=== PATIENT | male | born 1955 | race Caucasian/White ===

== ENCOUNTER → 2017-08-21 | Outpatient (CLI) | payer BC ==
--- NOTE | 2017-08-21 13:03 | US ---
EXAMINATION TYPE: US venous doppler duplex LE DATE OF EXAM: 08/21/2017 12:45 PM COMPARISON: NONE CLINICAL HISTORY: Swelling Bilateral Legs R22.42, R22.41. Bilateral swelling. Colon and liver Ca. P atient states that after chemo swelling began. No hx of blood clots or on blood thinners. SIDE PERFORMED: Bilateral TECHNIQUE: The lower extremity deep venous system is examined utilizing real time linear array sonog abbie with graded compression, doppler sonography and color-flow sonography. VESSELS IMAGED: External Iliac Vein (EIV) Common Femoral Vein Deep Femoral Vein Greater Saphenous Vein * Femoral Vein Popliteal Vein Small Saphenous Vein * Proximal Calf Veins (* superficial vessels) Grayscale, color doppler, spectral doppler imaging performed of the deep veins of the lower extremiti es. There is normal flow, compressibility, vascular waveforms. Right Leg: Negative for DVT Left Leg: Negative for DVT [facility]\[id number], Chelly Pinto - 08/21/2017 12:55:48 PM Called office at end of exam and spoke to Nissa from the call center due to office being closed for lunch regarding preliminary results. JT. IMPRESSION: No sonographic evidence of deep venous thrombosis within either lower extremity.
== END ==
LOC: RADUSWWP 12:06
PROVIDERS: ATTEND Internal Medicine Hematology & Oncology
DX: R22.42 Localized swelling, mass and lump, left lower limb (principal); R22.41 Localized swelling, mass and lump, right lower limb
CPT/HCPCS: 93970

== ENCOUNTER → 2017-08-28 | Outpatient (CLI) | payer BC ==
[2017-08-28 11:21] LABS: Blood Urea Nitrogen 8 mg/dL (9-20)
--- NOTE | 2017-08-28 13:28 | CT ---
EXAMINATION TYPE: CT ChestAbdPelvis w con DATE OF EXAM: 08/28/2017 COMPARISON: 06/03/2017 MRI abdomen and 06/01/2017 CT abdomen pelvis. HISTORY: Colon CA CT DLP: 1547 mGycm. Automated Exposure Control for Dose Reduction was Utilized. CONTRAST: CT scan of the thorax, abdomen and pelvis is performed with IV Contrast, patient injected with 100 mL of Omnipaque 300. FINDINGS: LUNGS: There is chronic right hemidiaphragm elevation. A new small right pleural effusion and associa laila right basilar atelectasis is seen. The lungs are grossly clear, there is no concerning parenchyma l mass or nodule identified. There is no pleural effusion or pneumothorax seen. The tracheobronchi al tree is patent. MEDIASTINUM: There are no greater than 1 cm hilar or mediastinal lymph nodes. No pericardial effusi on is seen. OTHER: There is a right-sided Mediport terminating in the cavoatrial junction. LIVER/GB: Although direct comparison with the prior CT and MRI are slightly different due to lack of intravenous contrast on the prior CT and technique and MRI there appears to be interval growth of the metastatic lesions with the largest in the left hepatic lobe now measuring 10.1 cm and previously me asuring 8.9 cm on the exam of 06/03/2017 and the largest near the right hepatic dome measuring 9.5 x 6.4 cm and previously measuring 8.6 cm. Largest lesion within the inferior right hepatic lobe as desc ribed on the prior MRI measures 8.5 x 7.1 cm and previously measured 5.0 cm. Innumerable metastases a re seen to the hepatic artery, within both lobes that are peripherally enhancing and centrally necrot ic. It is difficult to determine if any of these are new given lack of intravenous contrast on the pr ior CT. Portal vein again appears patent. PANCREAS: No significant abnormality is seen. No ductal dilatation. SPLEEN: No significant abnormality is seen. No splenomegaly. ADRENALS: No significant abnormality is seen. No nodules or thickening. KIDNEYS: Kidneys enhance symmetrically. Tiny probable cortical renal cyst is seen on the left on seri es 3 image 69 although overall this is too small to accurately characterize. BOWEL: Focal bowel wall thickening is seen of the ascending colon, presumably the known carcinoma wit h surrounding adenopathy as described below. Bowel is nondilated. Numerous sigmoid diverticula are no laila without pericolonic fat stranding. Minimal bowel wall thickening of the sigmoid colon may relate to congestive colopathy. LYMPH NODES: Right lower quadrant adenopathy is again appreciated with possible mesenteric implants w ith the largest conglomeration of nodes/soft tissue density measuring similar to the prior exam of 2. 8 x 1.8 cm (previously 2.8 cm). This is adjacent to area of focal bowel wall thickening of the ascend ing colon, presumably the known carcinoma. OSSEOUS STRUCTURES: No significant abnormality is seen. OTHER: New perihepatic ascites tracks down the lateral conal fascia into the pelvis and is overall sm all volume. Small amount of fluid is also seen adjacent to the spleen. IMPRESSION: 1. Overall findings represent progression of disease with enlargement of the innumerable hepatic meta stases. 2. Redemonstration of an ascending colonic mass, presumably the site of the patient's known carcinoma , with stable surrounding adenopathy most compatible with malignant metastatic adenopathy. 3. New small volume perihepatic and perisplenic ascites extending into the low pelvis. 4. No new evidence of metastatic disease within the chest or osseous structures.
== END ==
LOC: RADPROMAIN 10:38
PROVIDERS: ATTEND Internal Medicine Hematology & Oncology
DX: C18.2 Malignant neoplasm of ascending colon (principal); C78.7 Secondary malignant neoplasm of liver and intrahepatic bile duct; R18.8 Other ascites
CPT/HCPCS: 82565; 84520; 71260; 74177; J1642

== ENCOUNTER 2017-09-10 10:03 | Inpatient (IN) | payer BC ==
[2017-09-10] MEDS ORDERED: SODIUM CHLORIDE 0.9% 1,000 ML IV STA ×2 (10:55)
[2017-09-10] MEDS ORDERED: RX INFO: IV CONTRAST WAS GIVEN 1 EACH MISC MISCELLANE PRN (10:56)
[2017-09-10 11:53] LABS: Anisocytosis Slight; Basophils % (A) 1 %; Eosinophils % (A) 1 %; HCT 26.8 % (39.0-53.0); HGB 8.7 gm/dL (13.0-17.5); INR 1.6 (<1.2); Lymphocytes # (A) 0.5 k/uL (1.0-4.8); Lymphocytes % (A) 37 %; MCH 29.7 pg (25.0-35.0); MCHC 32.5 g/dL (31.0-37.0); MCV 91.2 fL (80.0-100.0); Mean Platelet Volume 10.6; Monocytes % (A) 2 %; Neutrophils # (A) 0.8 k/uL (1.3-7.7); Neutrophils % (A) 56 %; Partial Thromboplastin Time 32.5 sec (22.0-30.0); RBC 2.93 m/uL (4.30-5.90); RDW 19.9 % (11.5-15.5)
[2017-09-10 12:00] LABS: ALT 58 U/L (21-72); AST 148 U/L (17-59); Albumin 2.3 g/dL (3.5-5.0); Alkaline Phosphatase 717 U/L (38-126); Anion Gap 14 mmol/L; Blood Urea Nitrogen 17 mg/dL (9-20); Calcium 8.1 mg/dL (8.4-10.2); Carbon Dioxide 24 mmol/L (22-30); Chloride 103 mmol/L (98-107); Glucose 117 mg/dL (74-99); Potassium 3.8 mmol/L (3.5-5.1); Sodium 141 mmol/L (137-145); Total Bilirubin 8.4 mg/dL (0.2-1.3); Total Protein 4.9 g/dL (6.3-8.2)
[2017-09-10 12:08] LABS: Creatine Kinase 28 U/L (55-170); WBC 1.4 k/uL (3.8-10.6)
[2017-09-10 12:21] LABS: Creatine Kinase MB 0.6 ng/mL (0.0-2.4); Troponin I <0.012 ng/mL (0.000-0.034)
[2017-09-10 12:28] LABS: Platelet Count 44 k/uL (150-450)
--- NOTE | 2017-09-10 13:37 | CT ---
EXAMINATION TYPE: CT abdomen pelvis w con DATE OF EXAM: 09/10/2017 COMPARISON: CT chest abdomen and pelvis from 13 days ago. HISTORY: abdominal distention. Liver/colon CA CT DLP: 1373 mGycm, Automated Exposure Control for Dose Reduction was Utilized. CONTRAST: CT scan of the abdomen and pelvis is performed with oral and with IV Contrast, patient injected with 100 mL of Isovue 300. FINDINGS: LUNG BASES: There is persistent small right pleural effusion and associated right basilar compressive atelectasis. LIVER/GB: There is redemonstration of hepatomegaly within numerable hepatic metastatic lesions. For r eference lateral segment left hepatic lobe lesion measures 9.7 cm on long axis axial image 21 and jennifer sured 10.0 cm long axis prior study image 46. For reference posterior segment right hepatic lobe live r lesion measures 8.4 cm long axis current study axial image 51 versus 8.5 cm prior study image 71. S mall amount of perihepatic ascites anteriorly, inferiorly, and laterally remains present. There is ri m calcified 2.2 cm gallstone in gallbladder which is medially displaced due to hepatomegaly unchanged in appearance from prior study. PANCREAS: No significant abnormality is seen. SPLEEN: There is lateral perisplenic ascites redemonstrated not significantly changed. ADRENALS: No significant abnormality is seen. KIDNEYS: No significant abnormality is seen. BOWEL: Sigmoid colonic diverticulosis is redemonstrated. There is persistent suspicious wall thickeni ng in the right colon near axial image 68 right lower quadrant displaced by enlarged liver could refl ect site of primary neoplasm. PROSTATE/SEMINAL VESICLES: No gross abnormality seen. LYMPH NODES: Adjacent to presumed right colonic mass there is confluent mesenteric implants or adenop athy again seen measuring 2.8 x 2.3 cm axial image 68. OSSEOUS STRUCTURES: There is mild to moderate multilevel spurring of the spine redemonstrated. OTHER: There is mild to moderate diffuse soft tissue anasarca again seen. There is persistent moderat e amount of pelvic ascites. There is more mild abdominal ascites most prominent in the right lower qu adrant. There is no significant change in amount of ascites from most recent prior CT IMPRESSION: No significant change from most recent CT. Hepatomegaly with diffuse hepatic metastatic disease causing local mass effect. There is primary colonic carcinoma and adjacent medial adenopathy in the right lower quadrant redemonstrated. There is small amount of abdominal and moderate amount of pelvic ascites seen without significant interval change. There is stable small right pleural effusio n.
--- NOTE | 2017-09-10 14:14 | XR ---
EXAMINATION TYPE: XR chest 2V DATE OF EXAM: 09/10/2017 COMPARISON: NONE HISTORY: Weakness, liver and colon cancer TECHNIQUE: Frontal and lateral views of the chest are obtained. FINDINGS: Increased attenuation is present at the right lung base, and right heart border is obscure d. For catheter is present overlying right pectoral region, distal tip over the superior vena cava. T here are overlying cardiac leads. Heart size is likely normal. No evident pneumothorax. IMPRESSION: Right pleural effusion and associated atelectasis.
[2017-09-10 14:40] LABS: Appearance,Urine Cloudy (Clear); Bilirubin,Urine 2+ (Negative); Blood,Urine Negative (Negative); Color,Urine Dark Brown; Glucose,Urine (UA) Negative (Negative); Ketones,Urine Negative (Negative); Leukocyte Esterase,Urine Negative (Negative); Mucus,Urine Occasional /hpf; Nitrite,Urine Negative (Negative); PH, Urine 5.5 (5.0-8.0); Protein,Urine 1+ (Negative); RBC,Urine 1 /hpf (0-5); Specific Gravity,Urine 1.035 (1.001-1.035); WBC,Urine 7 /hpf (0-5)
[2017-09-10] MEDS ORDERED: MORPHINE ORAL SOLN 10 MG/5 ML CUP PO PRN (15:19)
[2017-09-10] MEDS ORDERED: NALOXONE 0.4 MG/ML 1 ML VIAL IV PRN (15:19)
--- NOTE | 2017-09-10 15:19 | ED ---
Weakness HPI - General Chief complaint: Weakness Stated complaint: PT INR Prolonged sent from Dr. Martin Time Seen by Provider: 09/10/17 10:44 Source: patient, family Mode of arrival: wheelchair Limitations: no limitations - History of Present Illness Initial comments: 61 years old male comes in with the some weakness distally he was by his primary care to come to the ER he noticed that her total bilirubin was elevated him a he himself feels like, there is a jaundiced but she denies any headaches no chest pain or shortness of breath no abdominal pain he does have a pain over the right upper quadrant area is aware that he has a liver metastatic disease from his colon cancer no pleuritic chest pain no symptoms of TIA or CVA - Related Data Home Medications Medication Instructions Recorded Confirmed HYDROcodone/APAP 5-325MG [[place] 1 tab PO Q8H PRN 09/10/17 09/10/17 5-325] Nystatin 100,000 Unit/ml Susp 5 ml PO QID PRN 09/10/17 09/10/17 [Mycostatin Oral Susp] Prochlorperazine [Compazine] 10 mg PO Q6H PRN 09/10/17 09/10/17 Allergies Allergy/AdvReac Type Severity Reaction Status Date / Time No Known Allergies Allergy Verified 09/10/17 10:58 Review of Systems ROS Statement: Those systems with pertinent positive or pertinent negative responses have been documented in the HPI. ROS Other: All systems not noted in ROS Statement are negative. Past Medical History Past Medical History: No Reported History Additional Past Medical History / Comment(s): colon/liver cancer History of Any Multi-Drug Resistant Organisms: None Reported Past Surgical History: No Surgical Hx Reported Past Psychological History: No Psychological Hx Reported Smoking Status: Never smoker Past Alcohol Use History: None Reported Past Drug Use History: None Reported - Past Family History Mother Family Medical History: Cancer Additional Family Medical History / Comment(s): bowel cancer Brother(s) Family Medical History: Cancer General Exam - General Exam Comments Initial Comments: General: The patient is awake him a he has obvious jaundice GCS is 15 Skin: Skin is warm and dry and no rashes or lesions are noted. Eye: Pupils are equal, round and reactive to light, extra-ocular movements are intact; there is normal conjunctiva bilaterally. Disposition noticed here as well Ears, nose, mouth and throat: There are moist mucous membranes and no oral lesions. Neck: The neck is supple, there is no tenderness or JVD. Cardiovascular: There is a regular rate and rhythm. No murmur, rub or gallop is appreciated. Respiratory: To auscultation bilateral, no wheezing no rhonchi no distress respiratory mondragon noticed Gastrointestinal: Soft, non-distended, non-tender abdomen without masses or organomegaly noted. There is no rebound or guarding present. Bowel sounds are unremarkable. Tenderness noticed over the right upper quadrant with the deep palpation, positive bowel sounds no guarding no rebound no symptoms of or signs of peritonitis Back: There is no tenderness to palpation in the midline. There is no obvious deformity. Musculoskeletal: Normal ROM, no tenderness, There is no pedal edema. There is no calf tenderness or swelling. No cords were appreciated. Neurological: CN II-XII intact, Cranial nerves III through XII are intact. There are no obvious motor or sensory deficits. Coordination appears grossly intact. Speech is normal. Psychiatric: Cooperative, appropriate mood & affect, normal judgment. Limitations: no limitations Course Vital Signs 09/10/17 09/10/17 09/10/17 10:31 12:30 13:56 Temperature 97.2 F L Pulse Rate 108 H 94 92 Respiratory 20 16 16 Rate Blood Pressure 149/88 124/74 111/70 O2 Sat by Pulse 98 100 100 Oximetry 09/10/17 14:45 Temperature Pulse Rate 98 Respiratory 16 Rate Blood Pressure 130/70 O2 Sat by Pulse 100 Oximetry Assessment noticed some white count is 1.4 platelets of 44 INR is 1.6 lactate is 2.1 troponin is unremarkable total bili is greater than 8 CT abdomen was done was reviewed findings discussed with the patient noticed previously documented hepatic lesions with some mass effect, Dr. Recinos was contacted Dr. Recinos he agreed with the admission he agreed to be a consult and Dr. Caba be consulted as well patient be admitted under Dr. Arsh jacobo hospitalist group my he agrees with the admission as long as well as patient and family EKG Findings - EKG Comments: EKG Findings:: EKG is normal sinus rhythm ventricular rate is 100 ME interval is 1:30 QRS duration is 78 QT/QTC 3 11/18/1954/456 review of this system does not reveal any ST elevation noticed some T-wave inversion in V3 Medical Decision Making - Lab Data Result diagrams: 09/10/17 11:15 09/10/17 11:15 Lab Results 09/10/17 09/10/17 09/10/17 Range/Units 11:15 11:15 11:15 WBC 1.4 L* (3.8-10.6) k/uL RBC 2.93 L (4.30-5.90) m/uL Hgb 8.7 L (13.0-17.5) gm/dL Hct 26.8 L (39.0-53.0) % MCV 91.2 (80.0-100.0) fL MCH 29.7 (25.0-35.0) pg MCHC 32.5 (31.0-37.0) g/dL RDW 19.9 H (11.5-15.5) % Plt Count 44 L* (150-450) k/uL Neutrophils % 56 % Lymphocytes % 37 % Monocytes % 2 % Eosinophils % 1 % Basophils % 1 % Neutrophils # 0.8 L (1.3-7.7) k/uL Lymphocytes # 0.5 L (1.0-4.8) k/uL Monocytes # 0.0 (0-1.0) k/uL Eosinophils # 0.0 (0-0.7) k/uL Basophils # 0.0 (0-0.2) k/uL Manual Slide Review Performed Anisocytosis Slight PT (9.0-12.0) sec INR (<1.2) APTT (22.0-30.0) sec Sodium 141 (137-145) mmol/L Potassium 3.8 (3.5-5.1) mmol/L Chloride 103 (98-107) mmol/L Carbon Dioxide 24 (22-30) mmol/L Anion Gap 14 mmol/L BUN 17 (9-20) mg/dL Creatinine 0.40 L (0.66-1.25) mg/dL Est GFR (CKD-EPI)AfAm >90 (>60 ml/min/1.73 sqM) Est GFR (CKD-EPI)NonAf >90 (>60 ml/min/1.73 sqM) Glucose 117 H (74-99) mg/dL Lactic Ac Sepsis Rflx Plasma Lactic Acid Valentino (0.7-2.0) mmol/L Calcium 8.1 L (8.4-10.2) mg/dL Total Bilirubin 8.4 H (0.2-1.3) mg/dL AST 148 H (17-59) U/L ALT 58 (21-72) U/L Alkaline Phosphatase 717 H (38-126) U/L Total Creatine Kinase 28 L (55-170) U/L CK-MB (CK-2) 0.6 (0.0-2.4) ng/mL CK-MB (CK-2) Rel Index 2.1 Troponin I <0.012 (0.000-0.034) ng/mL Total Protein 4.9 L (6.3-8.2) g/dL Albumin 2.3 L (3.5-5.0) g/dL Urine Color Urine Appearance (Clear) Urine pH (5.0-8.0) Ur Specific [place] (1.001-1.035) Urine Protein (Negative) Urine Glucose (UA) (Negative) Urine Ketones (Negative) Urine Blood (Negative) Urine Nitrite (Negative) Urine Bilirubin (Negative) Urine Urobilinogen (<2.0) mg/dL Ur Leukocyte Esterase (Negative) Urine RBC (0-5) /hpf Urine WBC (0-5) /hpf Urine Mucus (None) /hpf 09/10/17 09/10/17 09/10/17 Range/Units 11:15 11:15 12:12 WBC (3.8-10.6) k/uL RBC (4.30-5.90) m/uL Hgb (13.0-17.5) gm/dL Hct (39.0-53.0) % MCV (80.0-100.0) fL MCH (25.0-35.0) pg MCHC (31.0-37.0) g/dL RDW (11.5-15.5) % Plt Count (150-450) k/uL Neutrophils % % Lymphocytes % % Monocytes % % Eosinophils % % Basophils % % Neutrophils # (1.3-7.7) k/uL Lymphocytes # (1.0-4.8) k/uL Monocytes # (0-1.0) k/uL Eosinophils # (0-0.7) k/uL Basophils # (0-0.2) k/uL Manual Slide Review Anisocytosis PT 15.0 H (9.0-12.0) sec INR 1.6 H (<1.2) APTT 32.5 H (22.0-30.0) sec Sodium (137-145) mmol/L Potassium (3.5-5.1) mmol/L Chloride (98-107) mmol/L Carbon Dioxide (22-30) mmol/L Anion Gap mmol/L BUN (9-20) mg/dL Creatinine (0.66-1.25) mg/dL Est GFR (CKD-EPI)AfAm (>60 ml/min/1.73 sqM) Est GFR (CKD-EPI)NonAf (>60 ml/min/1.73 sqM) Glucose (74-99) mg/dL Lactic Ac Sepsis Rflx Y Plasma Lactic Acid Valentino 2.1 H* (0.7-2.0) mmol/L Calcium (8.4-10.2) mg/dL Total Bilirubin (0.2-1.3) mg/dL AST (17-59) U/L ALT (21-72) U/L Alkaline Phosphatase (38-126) U/L Total Creatine Kinase (55-170) U/L CK-MB (CK-2) (0.0-2.4) ng/mL CK-MB (CK-2) Rel Index Troponin I (0.000-0.034) ng/mL Total Protein (6.3-8.2) g/dL Albumin (3.5-5.0) g/dL Urine Color Urine Appearance (Clear) Urine pH (5.0-8.0) Ur Specific [place] (1.001-1.035) Urine Protein (Negative) Urine Glucose (UA) (Negative) Urine Ketones (Negative) Urine Blood (Negative) Urine Nitrite (Negative) Urine Bilirubin (Negative) Urine Urobilinogen (<2.0) mg/dL Ur Leukocyte Esterase (Negative) Urine RBC (0-5) /hpf Urine WBC (0-5) /hpf Urine Mucus (None) /hpf 09/10/17 Range/Units 14:15 WBC (3.8-10.6) k/uL RBC (4.30-5.90) m/uL Hgb (13.0-17.5) gm/dL Hct (39.0-53.0) % MCV (80.0-100.0) fL MCH (25.0-35.0) pg MCHC (31.0-37.0) g/dL RDW (11.5-15.5) % Plt Count (150-450) k/uL Neutrophils % % Lymphocytes % % Monocytes % % Eosinophils % % Basophils % % Neutrophils # (1.3-7.7) k/uL Lymphocytes # (1.0-4.8) k/uL Monocytes # (0-1.0) k/uL Eosinophils # (0-0.7) k/uL Basophils # (0-0.2) k/uL Manual Slide Review Anisocytosis PT (9.0-12.0) sec INR (<1.2) APTT (22.0-30.0) sec Sodium (137-145) mmol/L Potassium (3.5-5.1) mmol/L Chloride (98-107) mmol/L Carbon Dioxide (22-30) mmol/L Anion Gap mmol/L BUN (9-20) mg/dL Creatinine (0.66-1.25) mg/dL Est GFR (CKD-EPI)AfAm (>60 ml/min/1.73 sqM) Est GFR (CKD-EPI)NonAf (>60 ml/min/1.73 sqM) Glucose (74-99) mg/dL Lactic Ac Sepsis Rflx Plasma Lactic Acid Valent[place] (0.7-2.0) mmol/L Calcium (8.4-10.2) mg/dL Total Bilirubin (0.2-1.3) mg/dL AST (17-59) U/L ALT (21-72) U/L Alkaline Phosphatase (38-126) U/L Total Creatine Kinase (55-170) U/L CK-MB (CK-2) (0.0-2.4) ng/mL CK-MB (CK-2) Rel Index Troponin I (0.000-0.034) ng/mL Total Protein (6.3-8.2) g/dL Albumin (3.5-5.0) g/dL Urine Color Dark Brown Urine Appearance Cloudy (Clear) Urine pH 5.5 (5.0-8.0) Ur Specific [place] 1.035 (1.001-1.035) Urine Protein 1+ H (Negative) Urine Glucose (UA) Negative (Negative) Urine Ketones Negative (Negative) Urine Blood Negative (Negative) Urine Nitrite Negative (Negative) Urine Bilirubin 2+ H (Negative) Urine Urobilinogen 8.0 (<2.0) mg/dL Ur Leukocyte Esterase Negative (Negative) Urine RBC 1 (0-5) /hpf Urine WBC 7 H (0-5) /hpf Urine Mucus Occasional H (None) /hpf Disposition Clinical Impression: Jaundice, Metastatic colon cancer to liver Disposition: ADMITTED IP TO THIS HOSP Condition: Good Referrals: Toña Chinchilla MD [Primary Care Provider] - 1-2 days
[2017-09-10] MEDS ORDERED: NYSTATIN 100,000 UNIT/ML SUSP 500,000 UNIT/5 ML CUP PO PRN (15:24)
[2017-09-10] MEDS ORDERED: PROCHLORPERAZINE 10 MG TAB PO PRN (15:24)
--- NOTE | 2017-09-10 16:50 | P.HPIM ---
History of Present Illness H&P Date: 09/10/17 Chief Complaint: Weakness and fatigue The patient is a 62-year-old male the past medical history of colon cancer with metastasis to liver follows with Dr. Kentrell yadav who is approximately a week following his latest chemotherapy, today he presents to the ER with his complaining of increasing lower extremity weakness and fatigue. The patient reports poor appetite over the last 1-2 weeks but reports that it's been significantly worse in the last 3 days. The patient has noticed today in particular that his skin whites of his eyes are increasingly yellow. The patient denies any increasing abdominal distention or shortness of breath, he does report some intermittent lower extremity swelling. The patient denies any itchiness, confusion, involuntary movements or tremors. In the ER the patient had a CT abdomen and pelvis that showed no significant change from previous, there was noted hepatomegaly with diffuse hepatic metastasis disease causing local mass effect is a primary colonic carcinoma and adjacent medial adenopathy in the right lower quadrant small amount of abdominal and a moderate amount of pelvic ascites seen. The patient was noted to be pancytopenic, hemoglobin of 8.7, platelets of 44,000, neutropenic and hyperbilirubinemia with a total bilirubin of 8.4. He was started on IV fluids in the ER and recommended for admission Past Medical History Past Medical History: No Reported History Additional Past Medical History / Comment(s): colon/liver cancer History of Any Multi-Drug Resistant Organisms: None Reported Past Surgical History: No Surgical Hx Reported Past Psychological History: No Psychological Hx Reported Smoking Status: Never smoker Past Alcohol Use History: None Reported Past Drug Use History: None Reported - Past Family History Mother Family Medical History: Cancer Additional Family Medical History / Comment(s): bowel cancer Brother(s) Family Medical History: Cancer Medications and Allergies Home Medications Medication Instructions Recorded Confirmed Type HYDROcodone/APAP 5-325MG [[place] 1 tab PO Q8H PRN 09/10/17 09/10/17 History 5-325] Nystatin 100,000 Unit/ml Susp 5 ml PO QID PRN 09/10/17 09/10/17 History [Mycostatin Oral Susp] Prochlorperazine [Compazine] 10 mg PO Q6H PRN 09/10/17 09/10/17 History Allergies Allergy/AdvReac Type Severity Reaction Status Date / Time No Known Allergies Allergy Verified 09/10/17 10:58 Physical Exam Vitals: Vital Signs Temp Pulse Resp BP Pulse Ox 09/10/17 15:54 97.9 F 98 18 129/76 100 09/10/17 14:45 98 16 130/70 100 09/10/17 13:56 92 16 111/70 100 09/10/17 12:30 94 16 124/74 100 09/10/17 10:31 97.2 F L 108 H 20 149/88 98 Intake and Output 09/10/17 09/10/17 09/10/17 06:59 14:59 22:59 Other: Weight 63.957 kg Constitutional: No acute distress, conversant, pleasant Eyes: Scleral icterus, moist conjunctiva, no lid-lag, PERRLA ENMT: NC/AT,Oropharynx clear, no erythema, exudates Neck:Supple, FROM, no masses, or JVD, No carotid bruits; No thyromegaly Lungs: Clear to auscultation, Clear to percussion, Normal respiratory effort, no accessory muscle use Cardiovascular: Heart regular in rate and rhythm, No murmurs, gallops, or rubs , +2 pedal pitting edema extending up the leg Abdominal: Soft Nontender, nom distended, no guarding, no rebound or rigidity, Normoactive bowel sounds No hepatomegaly, No splenomegaly, No palpable mass No abdominal wall hernia noted Skin: Noticeable jaundiced, with a dry flaky cracky skin. Extremities:No digital cyanosis No clubbing, Pedal pulses intact and symmetrical Radial pulses intact and symmetrical Normal gait and station, No calf tenderness Psychiatric: Alert and oriented to person, place and time, Appropriate affect Intact judgement Neuro: Muscles Strength 5/5 in all 4 extremities, Sensation to light touch grossly present throughout, Cranial nerves II-XII grossly intact. No focal sensory deficits Results CBC & Chem 7: 09/10/17 11:15 09/10/17 11:15 Labs: Abnormal Lab Results - Last 24 Hours (Table) 09/10/17 09/10/17 09/10/17 Range/Units 11:15 11:15 11:15 WBC 1.4 L* (3.8-10.6) k/uL RBC 2.93 L (4.30-5.90) m/uL Hgb 8.7 L (13.0-17.5) gm/dL Hct 26.8 L (39.0-53.0) % RDW 19.9 H (11.5-15.5) % Plt Count 44 L* (150-450) k/uL Neutrophils # 0.8 L (1.3-7.7) k/uL Lymphocytes # 0.5 L (1.0-4.8) k/uL PT (9.0-12.0) sec INR (<1.2) APTT (22.0-30.0) sec Creatinine 0.40 L (0.66-1.25) mg/dL Glucose 117 H (74-99) mg/dL Plasma Lactic Acid Valentino (0.7-2.0) mmol/L Calcium 8.1 L (8.4-10.2) mg/dL Total Bilirubin 8.4 H (0.2-1.3) mg/dL AST 148 H (17-59) U/L Alkaline Phosphatase 717 H (38-126) U/L Total Creatine Kinase 28 L (55-170) U/L Total Protein 4.9 L (6.3-8.2) g/dL Albumin 2.3 L (3.5-5.0) g/dL Urine Protein (Negative) Urine Bilirubin (Negative) Urine WBC (0-5) /hpf Urine Mucus (None) /hpf 09/10/17 09/10/17 09/10/17 Range/Units 11:15 11:15 14:15 WBC (3.8-10.6) k/uL RBC (4.30-5.90) m/uL Hgb (13.0-17.5) gm/dL Hct (39.0-53.0) % RDW (11.5-15.5) % Plt Count (150-450) k/uL Neutrophils # (1.3-7.7) k/uL Lymphocytes # (1.0-4.8) k/uL PT 15.0 H (9.0-12.0) sec INR 1.6 H (<1.2) APTT 32.5 H (22.0-30.0) sec Creatinine (0.66-1.25) mg/dL Glucose (74-99) mg/dL Plasma Lactic Acid Valentino 2.1 H* (0.7-2.0) mmol/L Calcium (8.4-10.2) mg/dL Total Bilirubin (0.2-1.3) mg/dL AST (17-59) U/L Alkaline Phosphatase (38-126) U/L Total Creatine Kinase (55-170) U/L Total Protein (6.3-8.2) g/dL Albumin (3.5-5.0) g/dL Urine Protein 1+ H (Negative) Urine Bilirubin 2+ H (Negative) Urine WBC 7 H (0-5) /hpf Urine Mucus Occasional H (None) /hpf Assessment and Plan (1) Pancytopenia Current Visit: Yes Status: Acute Code(s): D61.818 - OTHER PANCYTOPENIA SNOMED Code(s): 198292165 (2) Hyperbilirubinemia Current Visit: Yes Status: Acute Code(s): E80.6 - OTHER DISORDERS OF BILIRUBIN METABOLISM SNOMED Code(s): 48281507 (3) Failure to thrive in adult Current Visit: Yes Status: Acute Code(s): R62.7 - ADULT FAILURE TO THRIVE SNOMED Code(s): 014633442 (4) Metastatic colon cancer to liver Current Visit: Yes Status: Acute Code(s): C18.9 - MALIGNANT NEOPLASM OF COLON, UNSPECIFIED; C78.7 - SECONDARY MALIG NEOPLASM OF LIVER AND INTRAHEPATIC BILE DUCT SNOMED Code(s): 65803351 Plan: The patient is admitted with pancytopenia and severe dehydration with hyperbilirubinemia and adult failure to thrive Anticipate a greater than 2 midnight stay. We'll start hydrating the patient with gentle IV fluids, treat supportively with antiemetics if needed. We'll consult dietary for further recommendations. We'll consult the patient's oncologist Dr. Pfeiffer, place the patient on neutropenic precautions on oncology floor. The patient is afebrile at this time, is pancytopenic and neutropenic with elevated serum lactate acid possibly secondary to dehydration, we'll monitor closely for sepsis. We'll consult GI doctor Rebecca for further recommendations. We'll continue to follow this patient's clinical course
[2017-09-10] MEDS: HYDROcodone/APAP 5-325MG 1 EACH TAB PO PRN (21:41)
[2017-09-11] MEDS: PANTOPRAZOLE 40 MG/10 ML VIAL IV SCH (07:58)
[2017-09-11 10:25] LABS: Anisocytosis Moderate; HCT 25.5 % (39.0-53.0); HGB 7.9 gm/dL (13.0-17.5); Hypochromasia Slight; MCH 29.2 pg (25.0-35.0); MCHC 31.2 g/dL (31.0-37.0); MCV 93.8 fL (80.0-100.0); Macrocytosis Slight; Mean Platelet Volume 9.2; RBC 2.72 m/uL (4.30-5.90)
[2017-09-11 10:29] LABS: WBC 0.6 k/uL (3.8-10.6)
[2017-09-11 10:31] LABS: ALT 60 U/L (21-72); AST 142 U/L (17-59); Albumin 2.3 g/dL (3.5-5.0); Alkaline Phosphatase 727 U/L (38-126); Anion Gap 11 mmol/L; Blood Urea Nitrogen 12 mg/dL (9-20); Calcium 7.9 mg/dL (8.4-10.2); Carbon Dioxide 24 mmol/L (22-30); Chloride 105 mmol/L (98-107); Glucose 92 mg/dL (74-99); Potassium 3.7 mmol/L (3.5-5.1); Sodium 140 mmol/L (137-145); Total Bilirubin 7.3 mg/dL (0.2-1.3); Total Protein 4.9 g/dL (6.3-8.2)
[2017-09-11 10:39] LABS: Platelet Count 45 k/uL (150-450)
[2017-09-11 14:45] VITALS: BMI 20.8
--- NOTE | 2017-09-11 15:17 | P.PN ---
Subjective Progress Note Date: 09/11/17 Patient reports that he's been up ambulating with a walker and working with physical therapy, did not have much of his breakfast. Has been drinking some of the ensure. Has no other complaints no acute events overnight Objective - Vital Signs Vital signs: Vital Signs Temp 98.3 F 09/10/17 21:16 Pulse 94 09/11/17 07:00 Resp 18 09/11/17 07:00 BP 114/60 09/11/17 07:00 Pulse Ox 98 09/11/17 07:00 Intake & Output 09/10/17 09/11/17 09/11/17 18:59 06:59 18:59 Intake Total 900 Balance 900 Weight 63.957 kg 63.957 kg Intake: IV 900 Sodium Chloride 0.9% 1, 900 000 ml @ 100 mls/hr IV . Q10H STA Rx#:[id number] Other: Voiding Method Toilet Toilet # Voids 1 - Exam Constitutional: No acute distress, conversant, pleasant Eyes: Scleral icterus, moist conjunctiva, no lid-lag, PERRLA ENMT: NC/AT,Oropharynx clear, no erythema, exudates Neck:Supple, FROM, no masses, or JVD, No carotid bruits; No thyromegaly Lungs: Clear to auscultation, Clear to percussion, Normal respiratory effort, no accessory muscle use Cardiovascular: Heart regular in rate and rhythm, No murmurs, gallops, or rubs , +2 pedal pitting edema extending up the leg Abdominal: Soft Nontender, nom distended, no guarding, no rebound or rigidity, Normoactive bowel sounds No hepatomegaly, No splenomegaly, No palpable mass No abdominal wall hernia noted Skin: Noticeable jaundiced, with a dry flaky cracky skin. Extremities:No digital cyanosis No clubbing, Pedal pulses intact and symmetrical Radial pulses intact and symmetrical Normal gait and station, No calf tenderness Psychiatric: Alert and oriented to person, place and time, Appropriate affect Intact judgement Neuro: Muscles Strength 5/5 in all 4 extremities, Sensation to light touch grossly present throughout, Cranial nerves II-XII grossly intact. No focal sensory deficits - Labs CBC & Chem 7: 09/11/17 09:53 09/11/17 09:53 Labs: Abnormal Lab Results - Last 24 Hours (Table) 09/11/17 09/11/17 Range/Units 09:53 09:53 WBC 0.6 L* (3.8-10.6) k/uL RBC 2.72 L (4.30-5.90) m/uL Hgb 7.9 L (13.0-17.5) gm/dL Hct 25.5 L (39.0-53.0) % RDW 20.0 H (11.5-15.5) % Plt Count 45 L* (150-450) k/uL Creatinine 0.40 L (0.66-1.25) mg/dL Calcium 7.9 L (8.4-10.2) mg/dL Total Bilirubin 7.3 H (0.2-1.3) mg/dL AST 142 H (17-59) U/L Alkaline Phosphatase 727 H (38-126) U/L Total Protein 4.9 L (6.3-8.2) g/dL Albumin 2.3 L (3.5-5.0) g/dL Assessment and Plan (1) Pancytopenia Narrative/Plan: * Secondary to chemotherapy versus underlying colon cancer metastatic to liver * Patient afebrile, continue meds monitor white count/ANC * Awaiting further recommendations from Dr. Veronica Chu Onc * Hemoglobin approximately 8g continue to monitor Current Visit: Yes Status: Acute Code(s): D61.818 - OTHER PANCYTOPENIA SNOMED Code(s): 129342659 (2) Hyperbilirubinemia Narrative/Plan: * Patient still visibly jaundiced with scleral icterus * Total bilirubin trending down with hydration * Continue to monitor, awaiting GI recommendations Current Visit: Yes Status: Acute Code(s): E80.6 - OTHER DISORDERS OF BILIRUBIN METABOLISM SNOMED Code(s): 57194345 (3) Failure to thrive in adult Narrative/Plan: * Appreciate dietary recommendations continue with Ensure Ericka Current Visit: Yes Status: Acute Code(s): R62.7 - ADULT FAILURE TO THRIVE SNOMED Code(s): 880338558 (4) Metastatic colon cancer to liver Current Visit: Yes Status: Acute Code(s): C18.9 - MALIGNANT NEOPLASM OF COLON, UNSPECIFIED; C78.7 - SECONDARY MALIG NEOPLASM OF LIVER AND INTRAHEPATIC BILE DUCT SNOMED Code(s): 84912838 Plan: Continue with current management awaiting feedback from GI and Heme Onc
--- NOTE | 2017-09-11 18:56 | P.CONS ---
History of Present Illness - Reason for Consult Consult date: 09/11/17 Jaundice, metastatic Colon cancer Requesting physician: Cris Ramirez - Chief Complaint Weakness, Fatigue, - History of Present Illness Mr Tracy is a pleasant white male, initially seen in consult at [facility] on 06/02/17. He had presented to an urgent care the day before with complaints of progressive weakness and shortness of breath on exertion, over the past 2 months. It also noted pain off and on in his right abdomen, mostly in the upper part which appear to be worsened with deep breathing. His labs showed a low hemoglobin of 6 with MCV of 59.4. He was therefore sent in to the emergency room. CT of the abdomen and pelvis showed suspicious appearance in the ascending colon just above the cecal valve. The liver was also noted to be diffusely heterogenous. The patient received blood transfusion. He then had a colonoscopy on 06/02/17 revealing a circumferential ulcerated mid ascending colon mass, beyond which the scope could not be passed. There was also a large polyp in the hepatic flexure that was biopsied. A 1 cm sigmoid colon polyp was also removed. EGD revealed a small hiatal hernia and long segment Serrato's esophagus. On exam the patient's liver appeared to be enlarged. Therefore MRI was ordered, which showed innumerable heterogenous masses that were hyperdense consistent with multiple metastatic lesions. The largest in the left measured 8.9 cm while the the largest on the right was 8.6 cm. Spleen was mildly enlarged at 14.8 cm while there was a large stone in the gallbladder noted. An apple core type lesion in the distal right colon was again seen. There was conglomerate abdominal adenopathy in the right lower quadrant with the largest mass measuring 2.31.8 cm. Iron studies from 06/01/17 showed severe deficiency with saturation 3.3% and ferritin 7.4 The patient was then discharged, and seen in the office on 06/05/17. The pathology report revealed adenocarcinoma he started FOLFOX on 06/17/17, and is s/p [address] scans after C 5 revealed progression in the liver. He was c/o b/l LE swelling distally, Dopplers from 08/21/17 were negative. With the noted progression on FOLFOX and intolerability he was changed to FOLFOX with Vectibix. He received on treatment with Neulasta on 09/04/17. He presented for follow-up visit on 09/10/17, he was noted to have increased yellowing of his skin and sclera. Abdomen was more distended and he had noticeable weight loss. His bili pena increased to 8.4. Therefore we was sent to ED to have further work-up for potentional obstructive jaundice. His is at bedside. His bilirubin has decreased today to 7.3. He is still fatigued with decreased po intake. He denies nausea, vomiting. Has had some loose stools since admission. Review of Systems A 14 point review of systems assessed and completed and negative except HPI Past Medical History Past Medical History: No Reported History Additional Past Medical History / Comment(s): colon/liver cancer History of Any Multi-Drug Resistant Organisms: None Reported Past Surgical History: No Surgical Hx Reported Past Anesthesia/Blood Transfusion Reactions: No Reported Reaction Past Psychological History: No Psychological Hx Reported Smoking Status: Never smoker Past Alcohol Use History: None Reported Past Drug Use History: None Reported - Past Family History Mother Family Medical History: Cancer Additional Family Medical History / Comment(s): bowel cancer Brother(s) Family Medical History: Cancer Medications and Allergies Home Medications Medication Instructions Recorded Confirmed Type HYDROcodone/APAP 5-325MG [[place] 1 tab PO Q8H PRN 09/10/17 09/10/17 History 5-325] Nystatin 100,000 Unit/ml Susp 5 ml PO QID PRN 09/10/17 09/10/17 History [Mycostatin Oral Susp] Prochlorperazine [Compazine] 10 mg PO Q6H PRN 09/10/17 09/10/17 History Allergies Allergy/AdvReac Type Severity Reaction Status Date / Time No Known Allergies Allergy Verified 09/10/17 10:58 Physical Exam Vitals: Vital Signs Temp Pulse Resp BP Pulse Ox 09/11/17 07:00 94 18 114/60 98 09/10/17 21:16 98.3 F 99 16 111/53 97 Intake and Output 09/11/17 09/11/17 09/11/17 06:59 14:59 22:59 Intake Total 900 800 Balance 900 800 Intake: IV 900 800 Sodium Chloride 0.9% 1, 900 800 000 ml @ 100 mls/hr IV . Q10H STA Rx#:[id number] Other: Voiding Method Toilet Toilet # Voids 1 Weight 63.957 kg - Constitutional General appearance: cooperative, no acute distress, thin - EENT Oral Thrush on tongue and posterior pharynx Eyes: poor dentition ENT: NA/AT, normal oropharynx - Neck Neck: normal ROM - Respiratory Respiratory: bilateral: CTA (No increased effort), diminished (Bibasilar) - Cardiovascular Tachycardia Rhythm: regular leg Peripheral Edema: bilateral: 1+ - Gastrointestinal General gastrointestinal: distended, tenderness - Integumentary Integumentary: jaundiced - Neurologic No focal defects Neurologic: CNII-XII intact - Musculoskeletal Musculoskeletal: generalized weakness - Psychiatric Psychiatric: A&O x's 3, appropriate affect, intact judgment & insight Results CBC & Chem 7: 09/11/17 09:53 09/11/17 09:53 Labs: Abnormal Lab Results - Last 24 Hours (Table) 09/11/17 09/11/17 Range/Units 09:53 09:53 WBC 0.6 L* (3.8-10.6) k/uL RBC 2.72 L (4.30-5.90) m/uL Hgb 7.9 L (13.0-17.5) gm/dL Hct 25.5 L (39.0-53.0) % RDW 20.0 H (11.5-15.5) % Plt Count 45 L* (150-450) k/uL Creatinine 0.40 L (0.66-1.25) mg/dL Calcium 7.9 L (8.4-10.2) mg/dL Total Bilirubin 7.3 H (0.2-1.3) mg/dL AST 142 H (17-59) U/L Alkaline Phosphatase 727 H (38-126) U/L Total Protein 4.9 L (6.3-8.2) g/dL Albumin 2.3 L (3.5-5.0) g/dL CT scan - abdomen: report reviewed CT scan - pelvis: report reviewed Assessment and Plan (1) Hyperbilirubinemia Narrative/Plan: Likely secondary to progressive metatastic disease. In the picture of neutropenia intervention may be at an increased risk. His bili is decreased today which could be a result of the new chemotherapy responding. Monitor liver function and bilirubin as well as CBC. GI to follow regarding if intervention for potential obstruction needed. Current Visit: Yes Status: Acute Code(s): E80.6 - OTHER DISORDERS OF BILIRUBIN METABOLISM SNOMED Code(s): 91718720 (2) Metastatic colon cancer to liver Narrative/Plan: 1. Recent progressive disease in Liver, status post cycle 1 of FOLFIRI and Vectibix second line therapy with neulasta. Will discuss continued treatment plan after patient is stablilized and discharged. Current Visit: Yes Status: Acute Code(s): C18.9 - MALIGNANT NEOPLASM OF COLON, UNSPECIFIED; C78.7 - SECONDARY MALIG NEOPLASM OF LIVER AND INTRAHEPATIC BILE DUCT SNOMED Code(s): 52864840 (3) Pancytopenia Narrative/Plan: Likely secondary to recent chemotherapy (7 day alexia), FOLFIR. He did receive neulasta injection therefore short acting CSF (i.e Granix or zarxio) would not be indicated at this time. Monitor closely for any s/s of infection Monitor closely for bleeding Transfuse if hemoglobin less than 7, or platlets less than 20 (transfuse plt if less than 50 if signs of bleeding or intervention is needed) Would expect neutropenia to start to improve and counts to start recovering in the next 48-72 hours. Nystatin for oral thrush Current Visit: Yes Status: Acute Code(s): D61.818 - OTHER PANCYTOPENIA SNOMED Code(s): 192378834 (4) Jaundice Current Visit: Yes Status: Acute Code(s): R17 - UNSPECIFIED JAUNDICE SNOMED Code(s): 14401939
[2017-09-11] MEDS: HYDROcodone/APAP 5-325MG 1 EACH TAB PO PRN (21:29)
[2017-09-12 07:01] LABS: Anisocytosis Moderate; HCT 25.6 % (39.0-53.0); HGB 8.3 gm/dL (13.0-17.5); Hypochromasia Slight; MCH 29.8 pg (25.0-35.0); MCHC 32.2 g/dL (31.0-37.0); MCV 92.3 fL (80.0-100.0); Macrocytosis Slight; Mean Platelet Volume 8.5; RBC 2.78 m/uL (4.30-5.90); RDW 20.1 % (11.5-15.5)
[2017-09-12 07:08] LABS: WBC 0.5 k/uL (3.8-10.6)
[2017-09-12 07:13] LABS: Platelet Count 115 k/uL (150-450)
[2017-09-12 07:21] LABS: ALT 51 U/L (21-72); AST 112 U/L (17-59); Albumin 2.2 g/dL (3.5-5.0); Alkaline Phosphatase 746 U/L (38-126); Anion Gap 14 mmol/L; Blood Urea Nitrogen 10 mg/dL (9-20); Calcium 7.9 mg/dL (8.4-10.2); Carbon Dioxide 22 mmol/L (22-30); Chloride 106 mmol/L (98-107); Glucose 86 mg/dL (74-99); Potassium 3.7 mmol/L (3.5-5.1); Sodium 142 mmol/L (137-145); Total Protein 4.8 g/dL (6.3-8.2)
[2017-09-12] MEDS: HYDROcodone/APAP 5-325MG 1 EACH TAB PO PRN ×2 (08:17→21:18)
[2017-09-12] MEDS: PANTOPRAZOLE 40 MG/10 ML VIAL IV SCH (08:18)
--- NOTE | 2017-09-12 08:24 | P.CONS ---
History of Present Illness - Reason for Consult Consult date: 09/11/17 Jaundice, weakness and fatigue - History of Present Illness The patient is a 62-year-old male who was diagnosed in May 2017 with metastatic colon cancer. The patient initially presented with profound anemia and was found to have a right colon partially obstructing mass with evidence of hepatomegaly and liver metastasis. The patient received chemotherapy. Apparently, he did not tolerate FOLFOX and was changed recently to Vectibix. His last dose was September 04, 2017. The patient denied any fever or chills. He was noted to be jaundiced and lab workup also showed pancytopenia. CT of the abdomen showed same findings of hepatomegaly and multiple metastatic lesions in the liver in the liver. Review of Systems Constitutional: Denies fever, chills, sweats, weight gain, or loss. HEENT: Negative for migraines, blurred vision or loss, earaches, drainage, tinnitus, oral mucosal lesions, dysphagia, or odynophagia. CARDIAC: Negative for chest pain, arrhythmias, or palpitation. RESPIRATORY: Negative for shortness of breath, hemoptysis, cough, or sputum production. GI: See HPI for pertinent findings. : Negative for hematuria, urgency, frequency, polyuria, or dysuria. MUSCULOSKELETAL: Negative for muscle aches, swelling, arthritis, and arthralgias. NEUROLOGIC: Negative for stroke or TIA. ENDOCRINE: Negative for thyroid problems. SKIN: Negative for rash or itching. PSYCHIATRIC: Negative history for depression and anxiety Past Medical History Past Medical History: No Reported History Additional Past Medical History / Comment(s): colon/liver cancer History of Any Multi-Drug Resistant Organisms: None Reported Past Surgical History: No Surgical Hx Reported Past Anesthesia/Blood Transfusion Reactions: No Reported Reaction Past Psychological History: No Psychological Hx Reported Smoking Status: Never smoker Past Alcohol Use History: None Reported Past Drug Use History: None Reported - Past Family History Mother Family Medical History: Cancer Additional Family Medical History / Comment(s): bowel cancer Brother(s) Family Medical History: Cancer Medications and Allergies Home Medications Medication Instructions Recorded Confirmed Type HYDROcodone/APAP 5-325MG [[place] 1 tab PO Q8H PRN 09/10/17 09/10/17 History 5-325] Nystatin 100,000 Unit/ml Susp 5 ml PO QID PRN 09/10/17 09/10/17 History [Mycostatin Oral Susp] Prochlorperazine [Compazine] 10 mg PO Q6H PRN 09/10/17 09/10/17 History Allergies Allergy/AdvReac Type Severity Reaction Status Date / Time No Known Allergies Allergy Verified 09/10/17 10:58 Physical Exam Vitals: Vital Signs Temp Pulse Resp BP Pulse Ox 09/11/17 07:00 94 18 114/60 98 09/10/17 21:16 98.3 F 99 16 111/53 97 09/10/17 18:02 97.8 F 98 18 119/76 99 Intake and Output 09/11/17 09/11/17 09/11/17 06:59 14:59 22:59 Intake Total 900 800 Balance 900 800 Intake: IV 900 800 Sodium Chloride 0.9% 1, 900 800 000 ml @ 100 mls/hr IV . Q10H STA Rx#:[id number] Other: Voiding Method Toilet Toilet # Voids 1 Weight 63.957 kg General appearance: The patient is alert, oriented, in no acute distress. HET: Head is normocephalic and atraumatic. Pupils are equal and reactive. Oropharynx is clear without lesions. Neck: Supple without lymphadenopathy. Trachea midline. Heart: S1 S2. Regular rate and rhythm. Lungs: No crackles or wheezes are heard. Abdomen: Soft, nontender, nondistended with bowel sounds. No peritoneal signs. No palpable organomegaly or masses. Extremities: Normal skin color and turgor. No cyanosis, rash, ulceration, clubbing, or edema. Radial and pedal pulses are 2/4 bilaterally. Neurological: No focal deficits. Strength and sensation are grossly intact. Results CBC & Chem 7: 09/12/17 06:32 09/12/17 06:32 Labs: Abnormal Lab Results - Last 24 Hours (Table) 09/11/17 09/11/17 Range/Units 09:53 09:53 WBC 0.6 L* (3.8-10.6) k/uL RBC 2.72 L (4.30-5.90) m/uL Hgb 7.9 L (13.0-17.5) gm/dL Hct 25.5 L (39.0-53.0) % RDW 20.0 H (11.5-15.5) % Plt Count 45 L* (150-450) k/uL Creatinine 0.40 L (0.66-1.25) mg/dL Calcium 7.9 L (8.4-10.2) mg/dL Total Bilirubin 7.3 H (0.2-1.3) mg/dL AST 142 H (17-59) U/L Alkaline Phosphatase 727 H (38-126) U/L Total Protein 4.9 L (6.3-8.2) g/dL Albumin 2.3 L (3.5-5.0) g/dL Assessment and Plan Assessment: Jaundice likely related to metastatic colon cancer to the liver. We will need to evaluate for possible opportunity for stenting for palliation. His pancytopenia Will limit any intervention at this time. Plan: Agree with your current management. Will follow closely with you and discuss with oncology as well and consider further interventions once his WBC and platelet counts improve.
--- NOTE | 2017-09-12 11:54 | P.PN ---
Subjective Progress Note Date: 09/12/17 Patient reports that he's been up ambulating with a walker and working with physical therapy, also complaining that his mouth is dry she is nothing by mouth for possible procedure per Dr. Davis , patient had a low-grade temperature overnight 100.9. Objective - Vital Signs Vital signs: Vital Signs Temp 100.9 F H 09/12/17 07:00 Pulse 111 H 09/12/17 07:00 Resp 20 09/12/17 07:00 BP 139/79 09/12/17 07:00 Pulse Ox 97 09/12/17 07:00 Intake & Output 09/11/17 09/12/17 09/12/17 18:59 06:59 18:59 Intake Total 800 230 Balance 800 230 Weight 63.957 kg Intake: IV 800 230 0.9 230 Sodium Chloride 0.9% 1, 800 000 ml @ 100 mls/hr IV . Q10H STA Rx#:[id number] Other: Voiding Method Toilet Toilet Toilet - Exam Constitutional: No acute distress, conversant, pleasant Eyes: Scleral icterus, moist conjunctiva, no lid-lag, PERRLA ENMT: NC/AT,Oropharynx clear, no erythema, exudates Neck:Supple, FROM, no masses, or JVD, No carotid bruits; No thyromegaly Lungs: Clear to auscultation, Clear to percussion, Normal respiratory effort, no accessory muscle use Cardiovascular: Heart regular in rate and rhythm, No murmurs, gallops, or rubs , +2 pedal pitting edema extending up the leg Abdominal: Soft Nontender, nom distended, no guarding, no rebound or rigidity, Normoactive bowel sounds No hepatomegaly, No splenomegaly, No palpable mass No abdominal wall hernia noted Skin: Noticeable jaundiced, with a dry flaky cracky skin. Extremities:No digital cyanosis No clubbing, Pedal pulses intact and symmetrical Radial pulses intact and symmetrical Normal gait and station, No calf tenderness Psychiatric: Alert and oriented to person, place and time, Appropriate affect Intact judgement Neuro: Muscles Strength 5/5 in all 4 extremities, Sensation to light touch grossly present throughout, Cranial nerves II-XII grossly intact. No focal sensory deficits - Labs CBC & Chem 7: 09/12/17 06:32 09/12/17 06:32 Labs: Abnormal Lab Results - Last 24 Hours (Table) 09/12/17 09/12/17 Range/Units 06:32 06:32 WBC 0.5 L* (3.8-10.6) k/uL RBC 2.78 L (4.30-5.90) m/uL Hgb 8.3 L (13.0-17.5) gm/dL Hct 25.6 L (39.0-53.0) % RDW 20.1 H (11.5-15.5) % Plt Count 115 L D (150-450) k/uL Creatinine 0.50 L (0.66-1.25) mg/dL Calcium 7.9 L (8.4-10.2) mg/dL Total Bilirubin 7.0 H (0.2-1.3) mg/dL AST 112 H (17-59) U/L Alkaline Phosphatase 746 H (38-126) U/L Total Protein 4.8 L (6.3-8.2) g/dL Albumin 2.2 L (3.5-5.0) g/dL Assessment and Plan (1) Pancytopenia Narrative/Plan: * Secondary to chemotherapy versus underlying colon cancer metastatic to liver * (7 day alexia), FOLFIR. He did receive neulasta injection therefore short acting CSF (i.e Granix or zarxio) would not be indicated at this time. * Patient febrile today, continue meds monitor white count 0.5 unable to get neutrophil count * We'll add cefepime 2g iv q 8 and consult ID for further recommendations * Awaiting further recommendations from Dr. Veronica Chu Onc * Hemoglobin approximately 8g continue to monitor Current Visit: Yes Status: Acute Code(s): D61.818 - OTHER PANCYTOPENIA SNOMED Code(s): 699009710 (2) Hyperbilirubinemia Narrative/Plan: * Patient still visibly jaundiced with scleral icterus * Total bilirubin trending down with hydration * Continue to monitor, and GI considering stenting palliative procedure however patients pancytopenia limiting any intervention at this time Current Visit: Yes Status: Acute Code(s): E80.6 - OTHER DISORDERS OF BILIRUBIN METABOLISM SNOMED Code(s): 51681212 (3) Failure to thrive in adult Narrative/Plan: * Appreciate dietary recommendations continue with Ensure Ericka Current Visit: Yes Status: Acute Code(s): R62.7 - ADULT FAILURE TO THRIVE SNOMED Code(s): 771327741 (4) Metastatic colon cancer to liver Current Visit: Yes Status: Acute Code(s): C18.9 - MALIGNANT NEOPLASM OF COLON, UNSPECIFIED; C78.7 - SECONDARY MALIG NEOPLASM OF LIVER AND INTRAHEPATIC BILE DUCT SNOMED Code(s): 87478884
[2017-09-12] MEDS: CEFEPIME 2 GM in SODIUM CHLORIDE 0.9% 50 ML IVPB SCH ×2 (13:00→19:15)
[2017-09-12] MEDS: ONDANSETRON 4 MG/2 ML VIAL IVP PRN (14:57)
--- NOTE | 2017-09-12 16:26 | PN ---
PROGRESS NOTE DATE OF SERVICE: September 12, 2017. CHIEF COMPLAINT: Very weak. [place] seen today as a followup. He is extremely weak, tired, had some nausea, no vomiting. His pain is relatively under control. PHYSICAL EXAMINATION: He is alert, oriented x3. His vital signs are temperature 98.3, pulse is 94, respiration 18, blood pressure 114/60. HEENT significant sclerae icterus. NECK: Supple. Chest coarse breath sounds bilaterally heard. Lungs: Lungs are clear. Heart is regular. ABDOMEN: Soft. Positive hepatosplenomegaly. Extremities revealed trace edema. LABORATORY DATA: 0.5, hemoglobin is 8.3, hematocrit is 25.6, platelets are 150. IMPRESSION: 1. Metastatic colon carcinoma. The patient has bulky and diffuse metastatic liver disease. This is likely causing his obstructive jaundice. The patient has failed first-line his systemic treatment with FOLFOX and was recently started on FOLFIRI regimen. 2. Pancytopenia related to his regimen prior to his development of obstructive jaundice. Pancytopenia related to systemic chemotherapy. His platelet count has improved. RECOMMENDATIONS: 1. Overall prognosis is very poor at this at this point in time. 2. Appreciate Gastroenterology input. I am not sure if the patient would benefit from a stent placement since he has diffuse liver metastases, and it is unlikely that a stent could be placed to relieve his obstructive jaundice. However, we will await further Gastroenterology recommendation in that regard. 3. Continue to monitor blood counts. 4. Continue broad-spectrum antibiotics. 5. I did discuss overall poor prognosis with the patient, his son and his friend at bedside. 6. At this point in time, we will continue current management and based on his progress over the next couple of days, then further decision will be made. Thank you very much. MMODL / IJN: [id number] /
--- NOTE | 2017-09-12 19:41 | CONS ---
CONSULTATION DATE OF SERVICE: 09/12/2017. REASON FOR CONSULTATION: Fever, febrile neutropenia. HISTORY OF PRESENT ILLNESS: The patient is a 62-year-old male with a past medical history significant for metastatic colon cancer. The patient who follows with Dr. Pfeiffer in the outpatient setting and did receive his last chemo about a week ago through the right chest wall MediPort. The patient coming into the hospital mostly with generalized symptoms of not feeling well. Very poor appetite for the last 2 weeks. Hardly has eaten anything. Did mention he is able to swallow with no evidence of any dysphagia or any vomiting, feeling nauseated though. He did have a chronic abdominal pain, but denies any worsening, some distention. The pain is more of a dull aching wound of 10/10 and no radiation. The patient denies any diarrhea or any constipation. With these symptoms the patient presented to the [facility] ER where the patient was evaluated by the ER physician. The patient did have a CT abdominal pelvis which did not show any significant change from the previous with evidence of a hepatomegaly and diffuse hepatic stasis. The patient who was afebrile on admission of 97.2, did spike a fever last night of 100.4 and another fever of 100.9 this morning for which Infectious Disease was consulted for further recommendation regarding antibiotic therapy. REVIEW OF SYSTEMS: CONSTITUTIONALLY: Positive for weakness and low-grade fever. EYES: No complaint. ENT: No complaint. RESPIRATORY: No complaint. CARDIOVASCULAR: No complaint. GENITOURINARY: No complaint. GASTROINTESTINAL: As per HPI. MUSCULOSKELETAL: No complaint. INTEGUMENTARY: No complaint. PSYCHOLOGICAL: No complaint. ENDOCRINE: No complaint. NEUROLOGICAL: No complaint. PAST MEDICAL HISTORY: Significant for metastatic colon cancer with metastases to the liver. PAST SURGICAL HISTORY: Biopsy, colonoscopy, and the MediPort placement. SOCIAL HISTORY: Denies smoking, drinking or drug use. FAMILY HISTORY: Mother with history of colon cancer. Brother also with history of cancer. ALLERGIES: No known drug allergies. MEDICATION: Medications include the patient is currently on [place], cefepime 2 g q.8, Narcan, nystatin swish and swallow, Zofran, Protonix, Compazine. EXAMINATION: Blood pressure is 139/79 with a pulse of 111, temperature 100.9, he is 97% on room air. General description is a middle-aged male lying in bed in no distress. No tachypnea or accessory muscle of respiration use. HEENT: Shows scleral icterus is positive. Oral mucosa is dry. No pharyngeal erythema or thrush. NECK: Trachea central. No thyromegaly. LUNGS: Unlabored breathing. Clear to auscultation anteriorly. No wheeze or crackle. HEART: S1, S2. Regular rate and rhythm. No normal. ABDOMEN: Soft, mildly distended. No guarding or rigidity. No organomegaly. EXTREMITIES: No edema of the feet. SKIN EXAMINATION: No rashes or mass palpable. NEUROLOGICAL: Patient is awake, alert, oriented. Mood and affect normal. The patient right chest wall MediPort site looks clean with no evidence of any redness. LABS: Hemoglobin is 8.2 with white count of 0.5. Differential was not performed. BUN of 10, creatinine 0.50. Electrolytes have been normal. Liver enzymes did shows bilirubin was 7. AST 112, ALT was 51 and alkaline phosphatase 746. The patient did have a UA that was negative. The patient did have a chest x-ray right pleural effusion and associated atelectasis. DIAGNOSTIC IMPRESSION AND PLAN: Patient with febrile neutropenia in patient who does have a white count of 0.5. Unfortunately no differential was done and did have a fever of 100.9. The patient does have metastatic colon cancer with metastases to the liver. Chest x-ray report for a pleural effusion but no consolidation. UA has been negative. Source questionably related to his metastatic liver disease and less likely related to his MediPort with the site looks currently clean. PLAN: 1. Blood cultures x2 stat 1 from peripherally, 1 from the central line. 2. Afterward the patient can be given cefepime 2 g q.8h. 3. Depending upon his clinical response as well as cultures, will adjust the medication further if needed. Thank you for this consultation. Will follow this patient along with you. MMODL / IJN: [id number] /
[2017-09-12] MEDS: SODIUM CHLORIDE 0.9% 1,000 ML IV SCH (21:21)
[2017-09-13] MEDS: SODIUM CHLORIDE 0.9% 1,000 ML IV SCH ×3 (00:58→22:58)
[2017-09-13] MEDS: CEFEPIME 2 GM in SODIUM CHLORIDE 0.9% 50 ML IVPB SCH ×3 (04:46→19:21)
[2017-09-13 07:26] LABS: ALT 51 U/L (21-72); AST 109 U/L (17-59); Alkaline Phosphatase 533 U/L (38-126); Anion Gap 11 mmol/L; Blood Urea Nitrogen 13 mg/dL (9-20); Calcium 7.4 mg/dL (8.4-10.2); Carbon Dioxide 23 mmol/L (22-30); Chloride 107 mmol/L (98-107); Glucose 79 mg/dL (74-99); Potassium 3.5 mmol/L (3.5-5.1); Sodium 141 mmol/L (137-145); Total Bilirubin 6.5 mg/dL (0.2-1.3); Total Protein 4.4 g/dL (6.3-8.2)
[2017-09-13 07:28] LABS: Anisocytosis Moderate; HCT 23.5 % (39.0-53.0); HGB 7.3 gm/dL (13.0-17.5); Hypochromasia Moderate; MCH 29.3 pg (25.0-35.0); MCV 94.5 fL (80.0-100.0); Macrocytosis Slight; Mean Platelet Volume 7.9; Platelet Count 180 k/uL (150-450); RBC 2.48 m/uL (4.30-5.90); RDW 20.8 % (11.5-15.5); WBC 1.3 k/uL (3.8-10.6)
[2017-09-13 07:56] LABS: Band Neutrophils % 7 %; Eosinophils # (M) 0.01 k/uL (0-0.7); Lymphocytes # (M) 0.52 k/uL (1.0-4.8); Monocytes # (M) 0.09 k/uL (0-1.0); Neutrophils % (M) 45 %; Nucleated Red Blood Cells 0 /100 WBC (0-0); Polychromasia Present; Total Cells Counted 100
[2017-09-13] MEDS: PANTOPRAZOLE 40 MG/10 ML VIAL IV SCH (08:37)
--- NOTE | 2017-09-13 12:40 | P.PN ---
Subjective Progress Note Date: 09/13/17 The patient continues to feel fatigued, has multiple family members visiting. The patient is pancytopenic and also has neutropenic fever. Still pretty poor appetite. Had a fever at 11 PM last night Objective - Vital Signs Vital signs: Vital Signs Temp 98.0 F 09/13/17 07:00 Pulse 98 09/13/17 08:00 Resp 16 09/13/17 08:00 BP 118/65 09/13/17 07:00 Pulse Ox 99 09/13/17 07:00 Intake & Output 09/12/17 09/13/17 09/13/17 18:59 06:59 18:59 Intake Total 800 1790 Balance 800 1790 Intake: Intake, IV Titration 800 1200 Amount Cefepime 2 gm In Sodium 100 Chloride 0.9% 50 ml @ 100 mls/hr IVPB Q8H KEHINDE Rx#: [id number] Sodium Chloride 0.9% 1, 800 1100 000 ml @ 100 mls/hr IV . Q10H KEHINDE Rx#:[id number] Oral 590 Other: Voiding Method Toilet Toilet Toilet # Voids 1 2 - Exam Constitutional: No acute distress, conversant, pleasant Eyes: Scleral icterus, moist conjunctiva, no lid-lag, PERRLA ENMT: NC/AT,Oropharynx clear, no erythema, exudates Neck:Supple, FROM, no masses, or JVD, No carotid bruits; No thyromegaly Lungs: Clear to auscultation, Clear to percussion, Normal respiratory effort, no accessory muscle use Cardiovascular: Heart regular in rate and rhythm, No murmurs, gallops, or rubs , +2 pedal pitting edema extending up the leg Abdominal: Soft Nontender, nom distended, no guarding, no rebound or rigidity, Normoactive bowel sounds No hepatomegaly, No splenomegaly, No palpable mass No abdominal wall hernia noted Skin: Noticeable jaundiced, with a dry flaky cracky skin. Extremities:No digital cyanosis No clubbing, Pedal pulses intact and symmetrical Radial pulses intact and symmetrical Normal gait and station, No calf tenderness Psychiatric: Alert and oriented to person, place and time, Appropriate affect Intact judgement Neuro: Muscles Strength 5/5 in all 4 extremities, Sensation to light touch grossly present throughout, Cranial nerves II-XII grossly intact. No focal sensory deficits - Labs CBC & Chem 7: 09/13/17 06:47 09/13/17 06:47 Labs: Abnormal Lab Results - Last 24 Hours (Table) 09/13/17 09/13/17 Range/Units 06:47 06:47 WBC 1.3 L* (3.8-10.6) k/uL RBC 2.48 L (4.30-5.90) m/uL Hgb 7.3 L (13.0-17.5) gm/dL Hct 23.5 L (39.0-53.0) % RDW 20.8 H (11.5-15.5) % Neutrophils # (Manual) 0.60 L (1.3-7.7) k/uL Lymphocytes # (Manual) 0.52 L (1.0-4.8) k/uL Creatinine 0.57 L (0.66-1.25) mg/dL Calcium 7.4 L (8.4-10.2) mg/dL Total Bilirubin 6.5 H (0.2-1.3) mg/dL AST 109 H (17-59) U/L Alkaline Phosphatase 533 H (38-126) U/L Total Protein 4.4 L (6.3-8.2) g/dL Albumin 2.0 L (3.5-5.0) g/dL Assessment and Plan (1) Pancytopenia Narrative/Plan: * Secondary to chemotherapy versus underlying colon cancer metastatic to liver * (7 day alexia), FOLFIR. He did receive neulasta injection therefore short acting CSF (i.e Granix or zarxio) would not be indicated at this time. * Patient febrile today, continue meds neutrophil count low * We'll add cefepime 2g iv q 8 and consult ID for further recommendations, blood culture pending * Awaiting further recommendations from Dr. Martin Heme Onc * Hemoglobin approximately 7.4g continue to monitor, platelets normalizing Current Visit: Yes Status: Acute Code(s): D61.818 - OTHER PANCYTOPENIA SNOMED Code(s): 669898737 (2) Hyperbilirubinemia Narrative/Plan: * Patient still visibly jaundiced with scleral icterus * Total bilirubin trending down with hydration * Continue to monitor, and GI considering stenting palliative procedure however patients pancytopenia limiting any intervention at this time Current Visit: Yes Status: Acute Code(s): E80.6 - OTHER DISORDERS OF BILIRUBIN METABOLISM SNOMED Code(s): 02925602 (3) Failure to thrive in adult Narrative/Plan: * Appreciate dietary recommendations continue with Ensure Ericka Current Visit: Yes Status: Acute Code(s): R62.7 - ADULT FAILURE TO THRIVE SNOMED Code(s): 197657664 (4) Metastatic colon cancer to liver Current Visit: Yes Status: Acute Code(s): C18.9 - MALIGNANT NEOPLASM OF COLON, UNSPECIFIED; C78.7 - SECONDARY MALIG NEOPLASM OF LIVER AND INTRAHEPATIC BILE DUCT SNOMED Code(s): 63001466 Plan: Appreciate input from the consultants have to wait till this patient fever breaks and his neutrophil count normalizes. Continue to monitor closely
[2017-09-13 19:54] LABS: Glucose,Whole Blood 73 mg/dL (75-99)
[2017-09-13] MEDS: HYDROcodone/APAP 5-325MG 1 EACH TAB PO PRN (21:15)
--- NOTE | 2017-09-13 21:44 | PN ---
PROGRESS NOTE DATE OF SERVICE: 09/13/2017. REASON FOR FOLLOW UP: Afebrile neutropenia. INTERVAL HISTORY: The patient did have a low-grade fever of 100.4 last night. The patient has been afebrile since then. The patient had been complaining of feeling weak and tired and no energy. Denies having any chest pain or shortness of breath. No cough. No abdominal pain. No nausea, vomiting, or any diarrhea. EXAMINATION: Blood pressure 131/81 with a pulse of 80, temperature 97.9, he is 99% on room air. General description is a middle-aged male lying in bed in no distress. Respiratory system, unlabored breathing. Clear to auscultation anteriorly. Heart S1, S2. Regular rate and rhythm. Abdomen is distended, no guarding. Extremities, no edema of feet. LABS: Hemoglobin 7.8, white count 1.3, BUN of 13, creatinine 0.57. Blood culture so far pending. DIAGNOSTIC IMPRESSION AND PLAN: Patient with febrile neutropenia in a patient who has a history of metastatic colon cancer with multiple mets to the liver, questionably related to his malignancy versus underlying infection. Keep the patient on cefepime while waiting for the culture to finalize. Fever seemed to have responded to addition of antibiotic, that will be continued. Family was present at bedside. Questions answered. MMODL / IJN: [id number] /
[2017-09-14] MEDS: CEFEPIME 2 GM in SODIUM CHLORIDE 0.9% 50 ML IVPB SCH ×3 (04:22→20:17)
[2017-09-14] MEDS: PANTOPRAZOLE 40 MG/10 ML VIAL IV SCH (08:01)
[2017-09-14 10:12] LABS: Anisocytosis Moderate; Basophils % (A) 0 %; Eosinophils % (A) 1 %; HCT 27.8 % (39.0-53.0); HGB 8.4 gm/dL (13.0-17.5); Hypochromasia Marked; Lymphocytes # (A) 0.7 k/uL (1.0-4.8); Lymphocytes % (A) 15 %; MCH 28.4 pg (25.0-35.0); MCHC 30.2 g/dL (31.0-37.0); MCV 93.8 fL (80.0-100.0); Macrocytosis Slight; Mean Platelet Volume 8.7; Monocytes # (A) 0.2 k/uL (0-1.0); Monocytes % (A) 4 %; Neutrophils # (A) 3.4 k/uL (1.3-7.7); Neutrophils % (A) 79 %; Platelet Count 295 k/uL (150-450); RBC 2.96 m/uL (4.30-5.90); WBC 4.3 k/uL (3.8-10.6)
[2017-09-14] MEDS: ONDANSETRON 4 MG/2 ML VIAL IVP PRN (12:40)
[2017-09-14] MEDS: SODIUM CHLORIDE 0.9% 1,000 ML IV SCH ×2 (12:44→20:17)
[2017-09-14] MEDS: HYDROcodone/APAP 5-325MG 1 EACH TAB PO PRN ×2 (13:42→21:23)
--- NOTE | 2017-09-14 16:12 | P.PN ---
Subjective Progress Note Date: 09/14/17 Principal diagnosis: Jaundice, metastatic colon adenocarcinoma Pt seen today in follow up, he is frustrated that nothing is being done. Assured pt that what can be done will be done as soon as his CBC is adequate for procedures, CBC was requested. Pt has c/o stomach discomfort secondary to bloating and distension, he is tolerating liquids but appetite and overall intake is poor, no current vomiting , cannot remember last BM, he is refusing most offers for pain meds. Objective - Vital Signs Vital signs: Vital Signs Temp 97.5 F L 09/14/17 15:00 Pulse 98 09/14/17 15:00 Resp 16 09/14/17 15:00 BP 116/71 09/14/17 15:00 Pulse Ox 97 09/14/17 15:00 Intake & Output 09/13/17 09/14/17 09/14/17 18:59 06:59 18:59 Intake Total 240 240 Balance 240 240 Weight 63.957 kg Intake: Oral 240 240 Other: Voiding Method Toilet Toilet Toilet # Voids 3 1 3 - Constitutional General appearance: Present: mild distress, thin - EENT Eyes: Present: scleral icterus ENT: Present: thrush - Respiratory Respiratory: bilateral: CTA - Cardiovascular Heart sounds: normal: S1, S2 - Gastrointestinal Gastrointestinal Comment(s): distant BS heard, abd is soft, mild tenderness General gastrointestinal: Present: distended - Integumentary Integumentary: Present: jaundiced - Neurologic Neurologic: Present: CNII-XII intact - Musculoskeletal Musculoskeletal: Present: generalized weakness, strength equal bilaterally - Psychiatric Psychiatric: Present: A&O x's 3, appropriate affect, intact judgment & insight - Labs CBC & Chem 7: 09/14/17 09:40 09/13/17 06:47 Labs: Abnormal Lab Results - Last 24 Hours (Table) 09/13/17 09/14/17 Range/Units 19:53 09:40 RBC 2.96 L (4.30-5.90) m/uL Hgb 8.4 L (13.0-17.5) gm/dL Hct 27.8 L (39.0-53.0) % MCHC 30.2 L (31.0-37.0) g/dL RDW 21.0 H (11.5-15.5) % Lymphocytes # 0.7 L (1.0-4.8) k/uL POC Glucose (mg/dL) 73 L (75-99) mg/dL Microbiology - Last 24 Hours (Table) 09/12/17 13:58 Blood Culture - Preliminary Blood No Growth after 48 hours 09/12/17 14:35 Blood Culture - Preliminary Blood No Growth after 24 hours Assessment and Plan (1) Pancytopenia due to chemotherapy Narrative/Plan: Further pt get s form treatment the better his counts are, WBC and platelets are now WNL, he continues to be anemia but not needing transfusion. Await evaluation by GI and hopefully pt can have procedure soon. Current Visit: Yes Status: Acute Priority: Medium Code(s): D61.810 - ANTINEOPLASTIC CHEMOTHERAPY INDUCED PANCYTOPENIA SNOMED Code(s): 1625561 (2) Metastatic colon cancer to liver Narrative/Plan: Hopefully pt jaundice is treatable with either stent or percutaneous drainage because without relief for the liver will no longer be candidate for chemotherapy. We will revisit pt and options once GI has had the opportunity to evaluate and treat if appropriate. Current Visit: Yes Status: Acute Priority: High Code(s): C18.9 - MALIGNANT NEOPLASM OF COLON, UNSPECIFIED; C78.7 - SECONDARY MALIG NEOPLASM OF LIVER AND INTRAHEPATIC BILE DUCT SNOMED Code(s): 83747767 Plan: Doctor attests: I performed a history and physical examination of this patient, discussed with dictator. I agree with dictators note, documented as a scribe.
--- NOTE | 2017-09-14 16:55 | PN ---
PROGRESS NOTE DATE OF SERVICE: 09/14/2017 REASON FOR FOLLOWUP: Febrile neutropenia. INTERVAL HISTORY: The patient's overall fever pattern has improved. He is currently breathing comfortably. Complaining of feeling weak and tired, with no energy. Denies having any chest pain, shortness of breath or cough. No abdominal pain or any diarrhea. PHYSICAL EXAMINATION: Blood pressure 137/81 with a pulse of 99, temperature 97.3. He is 100% on room air. General description is a middle-aged male lying in bed in no distress. RESPIRATORY SYSTEM: Unlabored breathing. Clear to auscultation anteriorly. HEART: S1, S2. Regular rate and rhythm. ABDOMEN: Soft. No tenderness. LABS: Hemoglobin 8.4, white count 4.3. Blood culture has been negative. DIAGNOSTIC IMPRESSION AND PLAN: Patient with febrile neutropenia in a patient who did have metastatic colon cancer with metastases to the liver. So far his fever has resolved and the white count normalized. As the cultures remain negative and neutropenia we will be able to switch him to oral antibiotic to finish the course on discharge. Continue with supportive care. MMODL / IJN: [id number] /
--- NOTE | 2017-09-14 18:19 | P.PN ---
Subjective Progress Note Date: 09/14/17 Principal diagnosis: General weakness Patient is feeling bad because of the recent diagnosis of cancer, denied any abdominal pain, nausea or vomiting. Last time he had a fever was about 48 hours ago. Objective - Vital Signs Vital signs: Vital Signs Temp 97.5 F L 09/14/17 15:00 Pulse 98 09/14/17 15:00 Resp 16 09/14/17 15:00 BP 116/71 09/14/17 15:00 Pulse Ox 97 09/14/17 15:00 Intake & Output 09/13/17 09/14/17 09/14/17 18:59 06:59 18:59 Intake Total 240 240 Balance 240 240 Weight 63.957 kg Intake: Oral 240 240 Other: Voiding Method Toilet Toilet Toilet # Voids 3 1 3 - Labs CBC & Chem 7: 09/14/17 09:40 09/13/17 06:47 Labs: Abnormal Lab Results - Last 24 Hours (Table) 09/13/17 09/14/17 Range/Units 19:53 09:40 RBC 2.96 L (4.30-5.90) m/uL Hgb 8.4 L (13.0-17.5) gm/dL Hct 27.8 L (39.0-53.0) % MCHC 30.2 L (31.0-37.0) g/dL RDW 21.0 H (11.5-15.5) % Lymphocytes # 0.7 L (1.0-4.8) k/uL POC Glucose (mg/dL) 73 L (75-99) mg/dL Microbiology - Last 24 Hours (Table) 09/12/17 14:35 Blood Culture - Preliminary Blood No Growth after 48 hours 09/12/17 13:58 Blood Culture - Preliminary Blood No Growth after 48 hours Assessment and Plan Plan: Pancytopenia * Secondary to chemotherapy, * Improving * S/P neulasta injection. Acute neutropenic fever * Source likely biliary * Resolved * Continue cefepime 1g iv q 8 * ID consulted * blood culture negative * Heme Onc following Hyperbilirubinemia * Total bilirubin trending down with hydration * Will discuss with GI the need for biliary stent versus percutaneous drain placement Failure to thrive in adult/lack of appetite * Appreciate dietary recommendations * Likely secondary to cancer * Continue with Ensure Metastatic colon cancer to liver Oncology following
[2017-09-15] MEDS: CEFEPIME 2 GM in SODIUM CHLORIDE 0.9% 50 ML IVPB SCH ×3 (03:35→20:12)
[2017-09-15] MEDS: SODIUM CHLORIDE 0.9% 1,000 ML IV SCH ×2 (06:55→08:43)
[2017-09-15 07:52] LABS: Anisocytosis Moderate; Basophils % (A) 0 %; Eosinophils # (A) 0.1 k/uL (0-0.7); Eosinophils % (A) 1 %; HCT 26.5 % (39.0-53.0); HGB 8.2 gm/dL (13.0-17.5); Hypochromasia Marked; Lymphocytes # (A) 0.9 k/uL (1.0-4.8); Lymphocytes % (A) 11 %; MCH 29.2 pg (25.0-35.0); MCV 94.1 fL (80.0-100.0); Macrocytosis Slight; Mean Platelet Volume 8.9; Monocytes # (A) 0.2 k/uL (0-1.0); Monocytes % (A) 3 %; Neutrophils # (A) 6.5 k/uL (1.3-7.7); Neutrophils % (A) 84 %; Platelet Count 343 k/uL (150-450); Poikilocytosis Slight; RBC 2.82 m/uL (4.30-5.90); WBC 7.7 k/uL (3.8-10.6)
[2017-09-15 07:56] LABS: INR 1.5 (<1.2); Partial Thromboplastin Time 30.3 sec (22.0-30.0)
[2017-09-15 08:08] LABS: Anion Gap 13 mmol/L; Blood Urea Nitrogen 13 mg/dL (9-20); Calcium 7.5 mg/dL (8.4-10.2); Carbon Dioxide 18 mmol/L (22-30); Chloride 108 mmol/L (98-107); Glucose 51 mg/dL (74-99); Magnesium 1.1 mg/dL (1.6-2.3); Phosphorus 1.6 mg/dL (2.5-4.5); Potassium 3.2 mmol/L (3.5-5.1); Sodium 139 mmol/L (137-145)
[2017-09-15] MEDS: PANTOPRAZOLE 40 MG TABLET PO SCH (08:43)
[2017-09-15 09:11] LABS: Bilirubin,Unconjugated 0.5 mg/dL (0.0-1.1); Total Bilirubin 5.5 mg/dL (0.2-1.3); Total Protein 4.4 g/dL (6.3-8.2)
[2017-09-15] MEDS ORDERED: POTASSIUM CHLORIDE ER 20 MEQ TAB.ER PO STA (09:17)
[2017-09-15] MEDS ORDERED: MAGNESIUM SULFATE-D5W PMX 1 GM in DEXTROSE/WATER 1 100ML.BAG IVPB SCH (09:20)
[2017-09-15] MEDS: MAGNESIUM SULFATE-D5W PMX 1 GM in DEXTROSE/WATER 1 100ML.BAG IVPB SCH ×2 (09:46→10:47)
[2017-09-15] MEDS: POTAS-SOD-PHOS 278-164-250 MG 1 EACH PACKET PO SCH ×3 (09:50→20:12)
[2017-09-15] MEDS ORDERED: INDOMETHACIN 50MG SUPPOSITORY RECTAL ONE (12:15)
[2017-09-15] MEDS: POTASSIUM CHLORIDE 10 MEQ in WATER FOR INJECTION 1 100ML.BAG IVPB SCH ×3 (12:52→15:20)
--- NOTE | 2017-09-15 13:23 | P.PN ---
Subjective Progress Note Date: 09/15/17 Principal diagnosis: General weakness Feeling okay, no new complaints. Objective - Vital Signs Vital signs: Vital Signs Temp 97.2 F L 09/15/17 12:04 Pulse 89 09/15/17 12:04 Resp 18 09/15/17 12:04 BP 118/83 09/15/17 12:04 Pulse Ox 96 09/15/17 12:04 Intake & Output 09/14/17 09/15/17 09/15/17 18:59 06:59 18:59 Intake Total 240 Balance 240 Weight 63.957 kg Intake: Oral 240 Other: Voiding Method Toilet Toilet # Voids 3 1 - Exam Constitutional: No acute distress, conversant, pleasant Eyes: Icteric sclerae, moist conjunctiva, no lid-lag, PERRLA, ENMT: Oropharynx contains thrush Neck: Supple, FROM, no masses, or JVD, No carotid bruits, No thyromegaly Lungs: Clear to auscultation, Clear to percussion, Normal respiratory effort, no accessory muscle use Cardiovascular: Heart regular in rate and rhythm, No murmurs, gallops, or rubs, No peripheral edema Abdominal: Distended, tense, slightly tender especially in the right upper quadrant, no guarding, rebound or rigidity, Normoactive bowel sounds, No hepatomegaly, No splenomegaly, + right-sided palpable mass Skin: Normal temperature, tone, texture, turgor, no induration, No subcutaneous nodules, No rash, lesions, No ulcers Extremities: No digital cyanosis, No clubbing, Pedal pulses intact and symmetrical, Radial pulses intact and symmetrical, No calf tenderness Psychiatric: Alert and oriented to person, place and time, appropriate affect, intact judgement, depressed mood. Neuro: General weakness - Labs CBC & Chem 7: 09/15/17 06:57 09/15/17 06:57 Labs: Abnormal Lab Results - Last 24 Hours (Table) 09/15/17 09/15/17 09/15/17 Range/Units 06:57 06:57 06:57 RBC 2.82 L (4.30-5.90) m/uL Hgb 8.2 L (13.0-17.5) gm/dL Hct 26.5 L (39.0-53.0) % RDW 21.0 H (11.5-15.5) % Lymphocytes # 0.9 L (1.0-4.8) k/uL PT 14.0 H (9.0-12.0) sec INR 1.5 H (<1.2) APTT 30.3 H (22.0-30.0) sec Potassium 3.2 L (3.5-5.1) mmol/L Chloride 108 H (98-107) mmol/L Carbon Dioxide 18 L (22-30) mmol/L Creatinine 0.52 L (0.66-1.25) mg/dL Glucose 51 L (74-99) mg/dL Calcium 7.5 L (8.4-10.2) mg/dL Phosphorus 1.6 L (2.5-4.5) mg/dL Magnesium 1.1 L (1.6-2.3) mg/dL Total Bilirubin (0.2-1.3) mg/dL Conjugated Bilirubin (0.0-0.3) mg/dL Delta Bilirubin (0.0-0.2) mg/dL AST (17-59) U/L Alkaline Phosphatase (38-126) U/L Total Protein (6.3-8.2) g/dL Albumin (3.5-5.0) g/dL 09/15/17 Range/Units 06:57 RBC (4.30-5.90) m/uL Hgb (13.0-17.5) gm/dL Hct (39.0-53.0) % RDW (11.5-15.5) % Lymphocytes # (1.0-4.8) k/uL PT (9.0-12.0) sec INR (<1.2) APTT (22.0-30.0) sec Potassium (3.5-5.1) mmol/L Chloride (98-107) mmol/L Carbon Dioxide (22-30) mmol/L Creatinine (0.66-1.25) mg/dL Glucose (74-99) mg/dL Calcium (8.4-10.2) mg/dL Phosphorus (2.5-4.5) mg/dL Magnesium (1.6-2.3) mg/dL Total Bilirubin 5.5 H (0.2-1.3) mg/dL Conjugated Bilirubin 2.0 H (0.0-0.3) mg/dL Delta Bilirubin 3.0 H (0.0-0.2) mg/dL AST 156 H (17-59) U/L Alkaline Phosphatase 913 H (38-126) U/L Total Protein 4.4 L (6.3-8.2) g/dL Albumin 2.0 L (3.5-5.0) g/dL Microbiology - Last 24 Hours (Table) 09/12/17 14:35 Blood Culture - Preliminary Blood No Growth after 48 hours 09/12/17 13:58 Blood Culture - Preliminary Blood No Growth after 48 hours Assessment and Plan Plan: Pancytopenia * Secondary to chemotherapy, * Resolved * S/P neulasta injection. Acute neutropenic fever * Source likely biliary * Resolved * Continue cefepime 1g iv q 8 * ID consulted * blood culture negative Mouth thrush Start nystatin swish and swallow Hyperbilirubinemia * Total bilirubin trending down with hydration * Discussed with GI planning for ERCP today or early in the morning tomorrow Hypomagnesemia/hypokalemia Replace Failure to thrive in adult/lack of appetite * Appreciate dietary recommendations * Likely secondary to cancer * Continue with Ensure Metastatic colon cancer to liver Oncology following
[2017-09-15] MEDS ORDERED: IV FLUID CONTINUATION 1,000 ML IV ONE (16:35)
--- NOTE | 2017-09-15 16:51 | P.PN ---
Subjective Progress Note Date: 09/15/17 Principal diagnosis: Jaundice, metastatic colon adenocarcinoma Pt seen today in follow up, he is still mildly nauseated, appetite is poor, he is currently awaiting ERCP with Dr. Freeman with hopes to relieve jaundice Objective - Vital Signs Vital signs: Vital Signs Temp 97.2 F L 09/15/17 12:04 Pulse 89 09/15/17 12:04 Resp 18 09/15/17 12:04 BP 118/83 09/15/17 12:04 Pulse Ox 96 09/15/17 12:04 Intake & Output 09/14/17 09/15/17 09/15/17 18:59 06:59 18:59 Intake Total 240 800 Balance 240 800 Weight 63.957 kg Intake: Intake, IV Titration 800 Amount Cefepime 2 gm In Sodium 50 Chloride 0.9% 50 ml @ 100 mls/hr IVPB Q8H [facility] Rx#: [id number] Magnesium Sulfate-D5w Pmx 200 1 gm In Dextrose/Water 1 100ml.bag @ 100 mls/hr IVPB Q1H [facility] Rx#: [id number] Sodium Chloride 0.9% 1, 550 000 ml @ 100 mls/hr IV . Q10H [facility] Rx#:[id number] Oral 240 Other: Voiding Method Toilet Toilet # Voids 3 1 - Constitutional Constitutional Comment(s): muscle wasting, frail General appearance: Present: thin - EENT EENT Comment(s): scant thrush on tongue Eyes: Present: scleral icterus - Respiratory Respiratory: bilateral: CTA, diminished - Cardiovascular Heart sounds: normal: S1, S2 - Gastrointestinal General gastrointestinal: Present: normal bowel sounds, soft - Integumentary Integumentary: Present: jaundiced - Neurologic Neurologic: Present: CNII-XII intact - Musculoskeletal Musculoskeletal: Present: generalized weakness - Psychiatric Psychiatric Comment(s): pt affect is frustrated Psychiatric: Present: A&O x's 3, intact judgment & insight - Labs CBC & Chem 7: 09/15/17 06:57 09/15/17 06:57 Labs: Abnormal Lab Results - Last 24 Hours (Table) 09/15/17 09/15/17 09/15/17 Range/Units 06:57 06:57 06:57 RBC 2.82 L (4.30-5.90) m/uL Hgb 8.2 L (13.0-17.5) gm/dL Hct 26.5 L (39.0-53.0) % RDW 21.0 H (11.5-15.5) % Lymphocytes # 0.9 L (1.0-4.8) k/uL PT 14.0 H (9.0-12.0) sec INR 1.5 H (<1.2) APTT 30.3 H (22.0-30.0) sec Potassium 3.2 L (3.5-5.1) mmol/L Chloride 108 H (98-107) mmol/L Carbon Dioxide 18 L (22-30) mmol/L Creatinine 0.52 L (0.66-1.25) mg/dL Glucose 51 L (74-99) mg/dL Calcium 7.5 L (8.4-10.2) mg/dL Phosphorus 1.6 L (2.5-4.5) mg/dL Magnesium 1.1 L (1.6-2.3) mg/dL Total Bilirubin (0.2-1.3) mg/dL Conjugated Bilirubin (0.0-0.3) mg/dL Delta Bilirubin (0.0-0.2) mg/dL AST (17-59) U/L Alkaline Phosphatase (38-126) U/L Total Protein (6.3-8.2) g/dL Albumin (3.5-5.0) g/dL 09/15/17 Range/Units 06:57 RBC (4.30-5.90) m/uL Hgb (13.0-17.5) gm/dL Hct (39.0-53.0) % RDW (11.5-15.5) % Lymphocytes # (1.0-4.8) k/uL PT (9.0-12.0) sec INR (<1.2) APTT (22.0-30.0) sec Potassium (3.5-5.1) mmol/L Chloride (98-107) mmol/L Carbon Dioxide (22-30) mmol/L Creatinine (0.66-1.25) mg/dL Glucose (74-99) mg/dL Calcium (8.4-10.2) mg/dL Phosphorus (2.5-4.5) mg/dL Magnesium (1.6-2.3) mg/dL Total Bilirubin 5.5 H (0.2-1.3) mg/dL Conjugated Bilirubin 2.0 H (0.0-0.3) mg/dL Delta Bilirubin 3.0 H (0.0-0.2) mg/dL AST 156 H (17-59) U/L Alkaline Phosphatase 913 H (38-126) U/L Total Protein 4.4 L (6.3-8.2) g/dL Albumin 2.0 L (3.5-5.0) g/dL Microbiology - Last 24 Hours (Table) 09/12/17 14:35 Blood Culture - Preliminary Blood No Growth after 72 hours 09/12/17 13:58 Blood Culture - Preliminary Blood No Growth after 72 hours Assessment and Plan (1) Pancytopenia due to chemotherapy Narrative/Plan: WBC and platelets have recovered from chemo alexia. Hgb remains low likely for multiple reasons including chemo but, no acute intervention is needed Current Visit: Yes Status: Acute Priority: Medium Code(s): D61.810 - ANTINEOPLASTIC CHEMOTHERAPY INDUCED PANCYTOPENIA SNOMED Code(s): 3341467 (2) Metastatic colon cancer to liver Narrative/Plan: If biliary relief can be achieved pt would like to continue of therapy. He will cont to be evaluated for treatment appropriateness. Current Visit: Yes Status: Acute Priority: High Code(s): C18.9 - MALIGNANT NEOPLASM OF COLON, UNSPECIFIED; C78.7 - SECONDARY MALIG NEOPLASM OF LIVER AND INTRAHEPATIC BILE DUCT SNOMED Code(s): 99739417 (3) Jaundice Narrative/Plan: Jaundice is likely secondary to obstructive metastatic disease in the liver. GI ERCP today, await results of procedure. Current Visit: Yes Status: Acute Priority: High Code(s): R17 - UNSPECIFIED JAUNDICE SNOMED Code(s): 68737448
[2017-09-15] MEDS ORDERED: MIDAZOLAM 2 MG/2 ML VIAL ONE (16:52)
[2017-09-15] MEDS ORDERED: PROPOFOL 10 MG/ML 20 ML VIAL IV ONE (16:52)
[2017-09-15] MEDS ORDERED: IOPAMIDOL-370 50ML BTL MISCELLANE ONE (17:30)
--- NOTE | 2017-09-15 17:56 | FL ---
EXAMINATION TYPE: FL ERCP biliary duct only DATE OF EXAM: 09/15/2017 CLINICAL HISTORY: Jaundice TECHNIQUE: Fluoroscopy. COMPARISON: None. FINDINGS/IMPRESSION: Fluoroscopic guidance was provided during procedure performed by Dr. Freeman. A t otal of 2.22 minutes of fluoroscopic time was utilized during the procedure and 2 spot images was acq uired demonstrating cannulation and opacification of the common bile duct.
--- NOTE | 2017-09-15 18:04 | P.PCN ---
Date of Procedure: 09/15/17 Procedure(s) Performed: Procedure: Endoscopic retrograde cholangiopancreatography ERCP Preoperative diagnosis: Metastatic colon cancer with progressive jaundice Postoperative diagnosis: 1. Normal papilla and pancreatic duct. 2. No filling defects in the common bile duct with patent cystic duct. 3. No obvious abnormality noted in the left biliary tree. 4. No definite abnormality seen in the right hepatic duct, but dye was preferentially flowing through the cystic duct into the gallbladder, making the study of the right biliary tree incomplete. 5. No high-grade narrowing noted to require stent placement at this time. Preparation and sedation: Was provided by anesthesia. Brief clinical history: The patient is a 62-year-old male with metastatic colon cancer who presented with an cytopenia and worsening jaundice. The patient had received chemotherapy secondary to progression of his metastatic liver disease. CT of the abdomen showed enlarged liver with multiple areas consistent with metastasis. This evaluation was planned once his pancytopenia improved to assess for any areas of obstruction in the biliary tree that may require stenting. The patient had evidence of calcified stone in the gallbladder. Procedure: With the patient in the prone position and after informed consent and adequate sedation, I passed the Olympus video duodenoscope down the esophagus into the stomach then passed it through the pylorus into the duodenum and brought the papilla into view. The papilla appeared normal. Initial cannulation and injection with dye resulted in opacification of the pancreatic duct which appeared normal. I was then able to cannulate and injectdye into the common bile duct and biliary tree. The common bile duct appeared slightly dilated but there were no filling defects. The cystic duct appeared patent and dye was flowing preferentially into the gallbladder. We were still able to see the left hepatic branches, however, the study of the right side was incomplete and partial but there was no obvious high-grade narrowing that would require stent placement today. Multiple spot films were taken then the endoscope was withdrawn. The patient tolerated the procedure well. Plan: I discussed the findings with the patient and his his family. Will allow diet as tolerated and monitor his liver enzymes and bilirubin. Further plans will be made based on his course. We will continue to follow with you with interest. If his jaundice continues to improve, then the possibility of some degree of cholangitis on admission could explain his presentation.
[2017-09-15] MEDS ORDERED: HYDROcodone/APAP 15 ML SOLUTION PO PRN (19:16)
[2017-09-15] MEDS ORDERED: MORPHINE SULF 5MG/10ML VL IVP PRN (19:18)
[2017-09-15] MEDS: FLUCONAZOLE IN NACL,ISO-OSM 200 MG in SALINE 1 100ML.BAG IVPB SCH (20:11)
[2017-09-15] MEDS: NYSTATIN 100,000 UNIT/ML SUSP 500,000 UNIT/5 ML CUP PO SCH (20:11)
--- NOTE | 2017-09-15 21:53 | PN ---
PROGRESS NOTE DATE OF SERVICE: 09/15/2017. REASON FOR FOLLOWUP: Febrile neutropenia. INTERVAL HISTORY: The patient's overall fever pattern has improved. He is breathing comfortably. The patient denies having any chest pain, shortness of breath, cough. No nausea, vomiting. No abdominal pain. EXAMINATION: Blood pressure 118/83 with a pulse of 89, temperature 97.1. He is 96% on room air. General description is a middle-aged male lying in bed in no distress. RESPIRATORY SYSTEM: Unlabored breathing. Clear to auscultation anteriorly. HEART: S1, S2. Regular rate and rhythm. ABDOMEN: Soft. No tenderness. LABS: White count up to 7. Blood culture negative so far. DIAGNOSTIC IMPRESSION AND PLAN: Patient with febrile neutropenia in a patient known to have metastatic colon cancer with progressive jaundice, status post ERCP. The patient is currently on cefepime. Will transition to oral antibiotics on discharge. Family is present at the bedside. Their questions were answered. MMODL / IJN: [id number] /
[2017-09-16] MEDS: CEFEPIME 2 GM in SODIUM CHLORIDE 0.9% 50 ML IVPB SCH ×3 (03:59→20:10)
[2017-09-16] MEDS: SODIUM CHLORIDE 0.9% 1,000 ML IV SCH ×2 (04:00→06:26)
[2017-09-16 07:54] LABS: Anisocytosis Moderate; Basophils % (A) 0 %; Eosinophils % (A) 0 %; HCT 27.4 % (39.0-53.0); HGB 8.3 gm/dL (13.0-17.5); Hypochromasia Moderate; Lymphocytes % (A) 9 %; MCHC 30.4 g/dL (31.0-37.0); MCV 95.3 fL (80.0-100.0); Macrocytosis Slight; Mean Platelet Volume 7.9; Monocytes # (A) 0.2 k/uL (0-1.0); Monocytes % (A) 2 %; Neutrophils # (A) 9.3 k/uL (1.3-7.7); Neutrophils % (A) 87 %; Platelet Count 451 k/uL (150-450); Poikilocytosis Slight; RBC 2.88 m/uL (4.30-5.90); RDW 21.4 % (11.5-15.5); WBC 10.7 k/uL (3.8-10.6)
[2017-09-16 08:22] LABS: ALT 65 U/L (21-72); AST 151 U/L (17-59); Albumin 1.9 g/dL (3.5-5.0); Alkaline Phosphatase 1000 U/L (38-126); Anion Gap 14 mmol/L; Blood Urea Nitrogen 13 mg/dL (9-20); Calcium 7.5 mg/dL (8.4-10.2); Carbon Dioxide 16 mmol/L (22-30); Chloride 110 mmol/L (98-107); Magnesium 1.5 mg/dL (1.6-2.3); Phosphorus 1.6 mg/dL (2.5-4.5); Potassium 3.5 mmol/L (3.5-5.1); Sodium 140 mmol/L (137-145); Total Bilirubin 4.9 mg/dL (0.2-1.3); Total Protein 4.3 g/dL (6.3-8.2)
[2017-09-16 08:57] LABS: Glucose 49 mg/dL (74-99)
[2017-09-16] MEDS: NYSTATIN 100,000 UNIT/ML SUSP 500,000 UNIT/5 ML CUP PO SCH ×4 (09:46→20:14)
[2017-09-16] MEDS: POTAS-SOD-PHOS 278-164-250 MG 1 EACH PACKET PO SCH ×3 (09:46→20:14)
[2017-09-16] MEDS: PANTOPRAZOLE 40 MG TABLET PO SCH (09:47)
[2017-09-16 09:50] LABS: Glucose,Whole Blood 69 mg/dL (75-99)
[2017-09-16] MEDS: FLUCONAZOLE IN NACL,ISO-OSM 200 MG in SALINE 1 100ML.BAG IVPB SCH (09:52)
[2017-09-16 10:11] LABS: Glucose,Whole Blood 56 mg/dL (75-99)
[2017-09-16] MEDS ORDERED: DEXTROSE 50%-WATER 50 ML SYRINGE IVP STA (10:50)
[2017-09-16] MEDS ORDERED: DEXTROSE 5% IN WATER 1,000 ML IV SCH (11:00)
[2017-09-16 11:03] LABS: Glucose,Whole Blood 58 mg/dL (75-99)
[2017-09-16 11:03] LABS: Glucose,Whole Blood 58 mg/dL (75-99)
[2017-09-16 11:03] LABS: Glucose,Whole Blood 64 mg/dL (75-99)
--- NOTE | 2017-09-16 11:20 | P.PN ---
Subjective Progress Note Date: 09/16/17 Principal diagnosis: metastatic cancer patient feeling weak, still with dysphagia, no nausea,no vomiting Objective - Vital Signs Vital signs: Vital Signs Temp 97.1 F L 09/16/17 07:00 Pulse 87 09/16/17 07:00 Resp 16 09/16/17 07:00 BP 99/57 09/16/17 07:00 Pulse Ox 96 09/16/17 07:00 Intake & Output 09/15/17 09/16/17 09/16/17 18:59 06:59 18:59 Intake Total 1200 500 Balance 1200 500 Intake: IV 400 300 0.9 300 Intake, IV Titration 800 200 Amount Cefepime 2 gm In Sodium 50 100 Chloride 0.9% 50 ml @ 100 mls/hr IVPB Q8H [facility] Rx#: [id number] Fluconazole in NaCl,Iso- 100 Osm 200 mg In Saline 1 100ml.bag @ 100 mls/hr IVPB DAILY [facility] Rx#: [id number] Magnesium Sulfate-D5w Pmx 200 1 gm In Dextrose/Water 1 100ml.bag @ 100 mls/hr IVPB Q1H [facility] Rx#: [id number] Sodium Chloride 0.9% 1, 550 000 ml @ 100 mls/hr IV . Q10H [facility] Rx#:[id number] Other: Voiding Method Toilet # Voids 1 # Bowel Movements 1 - Exam gen:alert and oriented unable to visualize thrush on exam lungs:clear to auscultation heart:s1s2 abdomen:softly distended,non tender ext:no edema - Labs CBC & Chem 7: 09/16/17 07:05 09/16/17 07:05 Labs: Abnormal Lab Results - Last 24 Hours (Table) 09/16/17 09/16/17 09/16/17 Range/Units 07:05 07:05 09:36 WBC 10.7 H (3.8-10.6) k/uL RBC 2.88 L (4.30-5.90) m/uL Hgb 8.3 L (13.0-17.5) gm/dL Hct 27.4 L (39.0-53.0) % MCHC 30.4 L (31.0-37.0) g/dL RDW 21.4 H (11.5-15.5) % Plt Count 451 H (150-450) k/uL Neutrophils # 9.3 H (1.3-7.7) k/uL Chloride 110 H (98-107) mmol/L Carbon Dioxide 16 L (22-30) mmol/L Creatinine 0.59 L (0.66-1.25) mg/dL Glucose 49 L* (74-99) mg/dL POC Glucose (mg/dL) 69 L (75-99) mg/dL Calcium 7.5 L (8.4-10.2) mg/dL Phosphorus 1.6 L (2.5-4.5) mg/dL Magnesium 1.5 L (1.6-2.3) mg/dL Total Bilirubin 4.9 H (0.2-1.3) mg/dL AST 151 H (17-59) U/L Alkaline Phosphatase 1000 H (38-126) U/L Total Protein 4.3 L (6.3-8.2) g/dL Albumin 1.9 L (3.5-5.0) g/dL 09/16/17 Range/Units 09:50 WBC (3.8-10.6) k/uL RBC (4.30-5.90) m/uL Hgb (13.0-17.5) gm/dL Hct (39.0-53.0) % MCHC (31.0-37.0) g/dL RDW (11.5-15.5) % Plt Count (150-450) k/uL Neutrophils # (1.3-7.7) k/uL Chloride (98-107) mmol/L Carbon Dioxide (22-30) mmol/L Creatinine (0.66-1.25) mg/dL Glucose (74-99) mg/dL POC Glucose (mg/dL) 56 L (75-99) mg/dL Calcium (8.4-10.2) mg/dL Phosphorus (2.5-4.5) mg/dL Magnesium (1.6-2.3) mg/dL Total Bilirubin (0.2-1.3) mg/dL AST (17-59) U/L Alkaline Phosphatase (38-126) U/L Total Protein (6.3-8.2) g/dL Albumin (3.5-5.0) g/dL Microbiology - Last 24 Hours (Table) 09/12/17 14:35 Blood Culture - Preliminary Blood No Growth after 72 hours 09/12/17 13:58 Blood Culture - Preliminary Blood No Growth after 72 hours Assessment and Plan (1) Hypoglycemia Narrative/Plan: 1 amp of d50 start d5 drip Current Visit: Yes Status: Acute Code(s): E16.2 - HYPOGLYCEMIA, UNSPECIFIED SNOMED Code(s): 343698628 (2) Neutropenic fever Current Visit: Yes Status: Acute Code(s): D70.9 - NEUTROPENIA, UNSPECIFIED; R50.81 - FEVER PRESENTING WITH CONDITIONS CLASSIFIED ELSEWHERE SNOMED Code(s) : 172495547 (3) Thrush Narrative/Plan: on nystatin swish and swallow and diflucan Current Visit: Yes Status: Acute Code(s): B37.0 - CANDIDAL STOMATITIS SNOMED Code(s): 34690651 (4) Jaundice Narrative/Plan: s/p ercp no stone or sign of obstruction alk phos still high Current Visit: Yes Status: Acute Priority: High Code(s): R17 - UNSPECIFIED JAUNDICE SNOMED Code(s): 95378148 (5) Metastatic colon cancer to liver Current Visit: Yes Status: Acute Priority: High Code(s): C18.9 - MALIGNANT NEOPLASM OF COLON, UNSPECIFIED; C78.7 - SECONDARY MALIG NEOPLASM OF LIVER AND INTRAHEPATIC BILE DUCT SNOMED Code(s): 50587974 (6) Pancytopenia due to chemotherapy Current Visit: Yes Status: Acute Priority: Medium Code(s): D61.810 - ANTINEOPLASTIC CHEMOTHERAPY INDUCED PANCYTOPENIA SNOMED Code(s): 5205813
[2017-09-16 11:50] LABS: Glucose,Whole Blood 67 mg/dL (75-99)
[2017-09-16] MEDS ORDERED: DEXTROSE 5%-0.45% NACL 1,000 ML IV SCH (12:00)
--- NOTE | 2017-09-16 12:30 | P.PN ---
Subjective Progress Note Date: 09/16/17 Principal diagnosis: Jaundice, metastatic colon adenocarcinoma Patient seen today in follow-up. He continues to get progressively weaker. His abdomen is progressively distending, his lower extremity swelling is persistent. Patient's appetite is poor, mild nausea, very early satiety. He is denying overt pain, no fevers, oral irritation is stable. Patient had ERCP yesterday with no identified obstruction amenable to stenting. Patient bilirubin is slowly declining with hydration. Objective - Vital Signs Vital signs: Vital Signs Temp 97.1 F L 09/16/17 07:00 Pulse 87 09/16/17 07:00 Resp 16 09/16/17 07:00 BP 99/57 09/16/17 07:00 Pulse Ox 96 09/16/17 07:00 Intake & Output 09/15/17 09/16/17 09/16/17 18:59 06:59 18:59 Intake Total 1200 500 Balance 1200 500 Weight 63.957 kg Intake: IV 400 300 0.9 300 Intake, IV Titration 800 200 Amount Cefepime 2 gm In Sodium 50 100 Chloride 0.9% 50 ml @ 100 mls/hr IVPB Q8H [facility] Rx#: [id number] Fluconazole in NaCl,Iso- 100 Osm 200 mg In Saline 1 100ml.bag @ 100 mls/hr IVPB DAILY [facility] Rx#: [id number] Magnesium Sulfate-D5w Pmx 200 1 gm In Dextrose/Water 1 100ml.bag @ 100 mls/hr IVPB Q1H [facility] Rx#: [id number] Sodium Chloride 0.9% 1, 550 000 ml @ 100 mls/hr IV . Q10H [facility] Rx#:[id number] Other: Voiding Method Toilet # Voids 1 # Bowel Movements 1 - Constitutional General appearance: Present: no acute distress, thin - EENT EENT Comment(s): thrush is minor on posterior tongue Eyes: Present: EOMI, scleral icterus - Respiratory Respiratory: bilateral: CTA - Cardiovascular Heart sounds: normal: S1, S2 - Peripheral edema leg Peripheral Edema: bilateral: 3+, Pitting - Gastrointestinal General gastrointestinal: Present: distended - Integumentary Integumentary: Present: jaundiced - Neurologic Neurologic: Present: CNII-XII intact - Musculoskeletal Musculoskeletal: Present: generalized weakness - Psychiatric Psychiatric: Present: A&O x's 3, appropriate affect, intact judgment & insight - Labs CBC & Chem 7: 09/16/17 07:05 09/16/17 07:05 Labs: Abnormal Lab Results - Last 24 Hours (Table) 09/16/17 09/16/17 09/16/17 Range/Units 07:05 07:05 09:36 WBC 10.7 H (3.8-10.6) k/uL RBC 2.88 L (4.30-5.90) m/uL Hgb 8.3 L (13.0-17.5) gm/dL Hct 27.4 L (39.0-53.0) % MCHC 30.4 L (31.0-37.0) g/dL RDW 21.4 H (11.5-15.5) % Plt Count 451 H (150-450) k/uL Neutrophils # 9.3 H (1.3-7.7) k/uL Chloride 110 H (98-107) mmol/L Carbon Dioxide 16 L (22-30) mmol/L Creatinine 0.59 L (0.66-1.25) mg/dL Glucose 49 L* (74-99) mg/dL POC Glucose (mg/dL) 69 L (75-99) mg/dL Calcium 7.5 L (8.4-10.2) mg/dL Phosphorus 1.6 L (2.5-4.5) mg/dL Magnesium 1.5 L (1.6-2.3) mg/dL Total Bilirubin 4.9 H (0.2-1.3) mg/dL AST 151 H (17-59) U/L Alkaline Phosphatase 1000 H (38-126) U/L Total Protein 4.3 L (6.3-8.2) g/dL Albumin 1.9 L (3.5-5.0) g/dL 09/16/17 09/16/17 09/16/17 Range/Units 09:50 10:11 10:24 WBC (3.8-10.6) k/uL RBC (4.30-5.90) m/uL Hgb (13.0-17.5) gm/dL Hct (39.0-53.0) % MCHC (31.0-37.0) g/dL RDW (11.5-15.5) % Plt Count (150-450) k/uL Neutrophils # (1.3-7.7) k/uL Chloride (98-107) mmol/L Carbon Dioxide (22-30) mmol/L Creatinine (0.66-1.25) mg/dL Glucose (74-99) mg/dL POC Glucose (mg/dL) 56 L 58 L 64 L (75-99) mg/dL Calcium (8.4-10.2) mg/dL Phosphorus (2.5-4.5) mg/dL Magnesium (1.6-2.3) mg/dL Total Bilirubin (0.2-1.3) mg/dL AST (17-59) U/L Alkaline Phosphatase (38-126) U/L Total Protein (6.3-8.2) g/dL Albumin (3.5-5.0) g/dL 09/16/17 09/16/17 Range/Units 10:42 11:42 WBC (3.8-10.6) k/uL RBC (4.30-5.90) m/uL Hgb (13.0-17.5) gm/dL Hct (39.0-53.0) % MCHC (31.0-37.0) g/dL RDW (11.5-15.5) % Plt Count (150-450) k/uL Neutrophils # (1.3-7.7) k/uL Chloride (98-107) mmol/L Carbon Dioxide (22-30) mmol/L Creatinine (0.66-1.25) mg/dL Glucose (74-99) mg/dL POC Glucose (mg/dL) 58 L 67 L (75-99) mg/dL Calcium (8.4-10.2) mg/dL Phosphorus (2.5-4.5) mg/dL Magnesium (1.6-2.3) mg/dL Total Bilirubin (0.2-1.3) mg/dL AST (17-59) U/L Alkaline Phosphatase (38-126) U/L Total Protein (6.3-8.2) g/dL Albumin (3.5-5.0) g/dL Microbiology - Last 24 Hours (Table) 09/12/17 14:35 Blood Culture - Preliminary Blood No Growth after 72 hours 09/12/17 13:58 Blood Culture - Preliminary Blood No Growth after 72 hours Assessment and Plan (1) Pancytopenia due to chemotherapy Narrative/Plan: Improved. Pt is actually due for another cycle of chemo. We discussed that until liver function is able to be improved he will not be able to receive treatment. He does understand this. Hold treatment Current Visit: Yes Status: Acute Priority: Medium Code(s): D61.810 - ANTINEOPLASTIC CHEMOTHERAPY INDUCED PANCYTOPENIA SNOMED Code(s): 4410134 (2) Metastatic colon cancer to liver Current Visit: Yes Status: Acute Priority: High Code(s): C18.9 - MALIGNANT NEOPLASM OF COLON, UNSPECIFIED; C78.7 - SECONDARY MALIG NEOPLASM OF LIVER AND INTRAHEPATIC BILE DUCT SNOMED Code(s): 74700442 (3) Jaundice Narrative/Plan: Unfortunately, ERCP did not find a treatable source for pt jaundice. Have consulted IR to look at pt and see if there is any indication for PCTA. Have also asked for evaluation for paracentesis. We will await the evaluation and recommendations Bilirubin is trending down very slowly likely due to hydration. Pt will have labs daily Current Visit: Yes Status: Acute Priority: High Code(s): R17 - UNSPECIFIED JAUNDICE SNOMED Code(s): 80229579 Plan: We discussed with pt the efforts being made to see if there is a treatable component to his liver failure. He is understanding the need for adequate liver function to continue cancer treatment. Again, await IR recommendations. Will follow up with pt and family Doctor attests: I performed a history and physical examination of this patient, discussed with dictator. I agree with dictators note, documented as a scribe.
[2017-09-16 12:44] LABS: Glucose,Whole Blood 125 mg/dL (75-99)
--- NOTE | 2017-09-16 15:39 | PN ---
PROGRESS NOTE DATE OF SERVICE: 09/16/2017. REASON FOR FOLLOWUP: Febrile neutropenia. INTERVAL HISTORY: The patient is afebrile. He is currently breathing comfortably. Denies having any chest pain, shortness of breath or cough. No nausea, vomiting. Admits to feeling weak and tired. EXAMINATION: Blood pressure is 99/57 with a pulse of 87, temperature is 97.1. He is 93% on room air. General description is a middle-aged male lying in bed in no distress. Respiratory system: Unlabored breathing, clear to auscultation anteriorly. Heart S1, S2. Regular rate and rhythm. ABDOMEN: Soft, no tenderness. LABS: White count 10.7. Blood culture has been negative. DIAGNOSTIC IMPRESSION AND PLAN: Patient with mild febrile neutropenia more likely due to his underlying metastatic colon cancer rather than infectious etiology with all cultures remain to be negative. May give a short course of oral Augmentin once stable for discharge. Keep the patient on cefepime at this point. Continue supportive care. MMODL / IJN: [id number] /
[2017-09-16] MEDS: DEXTROSE 5%-0.9% NACL 1,000 ML IV SCH (15:47)
--- NOTE | 2017-09-16 15:57 | US ---
Therapeutic paracentesis. DATE OF EXAM: 09/16/2017 CLINICAL HISTORY: Ascites The procedure was discussed with the patient. The risks, complications, benefits, and alternatives we re discussed and any questions were answered. Informed consent was obtained. The patient was placed s upine on the ultrasound table and prepped and draped in the usual sterile fashion. All elements of maximal barrier technique were utilized. Under ultrasound guidance, access into the right lower quadrant was obtained, via the paracentesis catheter system and direct ultrasound guidanc e. Approximately 2.8 liters of straw-colored fluid was removed. The patient was stable throughout the pr ocedure and remained stable upon discharge from Department of Radiology. IMPRESSION: Successful therapeutic paracentesis under ultrasound guidance.
[2017-09-16 18:02] LABS: Appearance,BF Clear; Color,BF Yellow; Nucleated Cells, Body Fluid 3 /uL; RBC, Body Fluid 43 /uL
[2017-09-16] MEDS ORDERED: MORPHINE ORAL SOLN 10 MG/5 ML CUP PO PRN (19:22)
[2017-09-17 01:18] LABS: Total Protein, Body Fluid 882 mg/dL
[2017-09-17 02:14] LABS: Glucose,Whole Blood 111 mg/dL (75-99)
[2017-09-17] MEDS: CEFEPIME 2 GM in SODIUM CHLORIDE 0.9% 50 ML IVPB SCH ×3 (03:36→20:19)
[2017-09-17 07:24] LABS: Anisocytosis Moderate; Basophils % (A) 0 %; Eosinophils # (A) 0.1 k/uL (0-0.7); Eosinophils % (A) 0 %; HCT 30.7 % (39.0-53.0); HGB 9.1 gm/dL (13.0-17.5); Hypochromasia Marked; Lymphocytes # (A) 1.2 k/uL (1.0-4.8); Lymphocytes % (A) 7 %; MCH 28.9 pg (25.0-35.0); MCHC 29.7 g/dL (31.0-37.0); MCV 97.3 fL (80.0-100.0); Macrocytosis Moderate; Mean Platelet Volume 8.2; Monocytes # (A) 0.3 k/uL (0-1.0); Monocytes % (A) 2 %; Neutrophils # (A) 14.2 k/uL (1.3-7.7); Neutrophils % (A) 89 %; Platelet Count 704 k/uL (150-450); Poikilocytosis Slight; RBC 3.15 m/uL (4.30-5.90)
[2017-09-17] MEDS: FLUCONAZOLE IN NACL,ISO-OSM 200 MG in SALINE 1 100ML.BAG IVPB SCH (08:54)
[2017-09-17] MEDS: POTAS-SOD-PHOS 278-164-250 MG 1 EACH PACKET PO SCH ×3 (08:55→23:05)
[2017-09-17] MEDS: NYSTATIN 100,000 UNIT/ML SUSP 500,000 UNIT/5 ML CUP PO SCH ×4 (08:57→22:18)
[2017-09-17] MEDS: PANTOPRAZOLE 40 MG TABLET PO SCH (08:57)
--- NOTE | 2017-09-17 09:52 | P.PN ---
Subjective Progress Note Date: 09/17/17 Principal diagnosis: metastatic cancer swallowing better, still feels weak, no chills, no fever, had thorascentesis yesterday Objective - Vital Signs Vital signs: Vital Signs Temp 98.0 F 09/17/17 07:00 Pulse 97 09/17/17 08:00 Resp 18 09/17/17 07:00 BP 127/71 09/17/17 07:00 Pulse Ox 93 L 09/17/17 08:26 Intake & Output 09/16/17 09/17/17 09/17/17 18:59 06:59 18:59 Intake Total 1150 Balance 1150 Weight 63.957 kg 63.957 kg Intake: Intake, IV Titration 1050 Amount Dextrose 5%-0.9% NaCl 1, 1050 000 ml @ 75 mls/hr IV . [id number] [facility] Rx#:[id number] Oral 100 Other: Voiding Method Toilet Toilet Toilet # Voids 1 1 # Bowel Movements 1 - Exam gen:alert and oriented lungs:clear to auscultation heart:s1s2 abdomen:softly distended, non tender ext:no edema - Labs CBC & Chem 7: 09/17/17 06:55 09/16/17 07:05 Labs: Abnormal Lab Results - Last 24 Hours (Table) 09/16/17 09/16/17 09/16/17 Range/Units 09:36 09:50 10:11 WBC (3.8-10.6) k/uL RBC (4.30-5.90) m/uL Hgb (13.0-17.5) gm/dL Hct (39.0-53.0) % MCHC (31.0-37.0) g/dL RDW (11.5-15.5) % Plt Count (150-450) k/uL Neutrophils # (1.3-7.7) k/uL POC Glucose (mg/dL) 69 L 56 L 58 L (75-99) mg/dL 09/16/17 09/16/17 09/16/17 Range/Units 10:24 10:42 11:42 WBC (3.8-10.6) k/uL RBC (4.30-5.90) m/uL Hgb (13.0-17.5) gm/dL Hct (39.0-53.0) % MCHC (31.0-37.0) g/dL RDW (11.5-15.5) % Plt Count (150-450) k/uL Neutrophils # (1.3-7.7) k/uL POC Glucose (mg/dL) 64 L 58 L 67 L (75-99) mg/dL 09/16/17 09/17/17 09/17/17 Range/Units 12:39 02:12 06:55 WBC 16.0 H (3.8-10.6) k/uL RBC 3.15 L (4.30-5.90) m/uL Hgb 9.1 L (13.0-17.5) gm/dL Hct 30.7 L (39.0-53.0) % MCHC 29.7 L (31.0-37.0) g/dL RDW 23.0 H (11.5-15.5) % Plt Count 704 H (150-450) k/uL Neutrophils # 14.2 H (1.3-7.7) k/uL POC Glucose (mg/dL) 125 H 111 H (75-99) mg/dL Microbiology - Last 24 Hours (Table) 09/16/17 14:40 Gram Stain - Preliminary Ascites Fluid Body Fluid Culture - Preliminary 09/12/17 14:35 Blood Culture - Preliminary Blood No Growth after 96 hours 09/12/17 13:58 Blood Culture - Preliminary Blood No Growth after 96 hours Assessment and Plan (1) Hypoglycemia Narrative/Plan: patiet on d5 drip continue to monitor now that oral intake seems to have improved today Current Visit: Yes Status: Acute Code(s): E16.2 - HYPOGLYCEMIA, UNSPECIFIED SNOMED Code(s): 611832776 (2) Neutropenic fever Narrative/Plan: no further fever neutropenia improved s/p neulasta Current Visit: Yes Status: Acute Code(s): D70.9 - NEUTROPENIA, UNSPECIFIED; R50.81 - FEVER PRESENTING WITH CONDITIONS CLASSIFIED ELSEWHERE SNOMED Code(s) : 277899974 (3) Thrush Narrative/Plan: dysphagia better today on nystatin and diflucan Current Visit: Yes Status: Acute Code(s): B37.0 - CANDIDAL STOMATITIS SNOMED Code(s): 81526135 (4) Jaundice Current Visit: Yes Status: Acute Priority: High Code(s): R17 - UNSPECIFIED JAUNDICE SNOMED Code(s): 39559203 (5) Metastatic colon cancer to liver Narrative/Plan: no further treatment until the liver function stabilizes Current Visit: Yes Status: Acute Priority: High Code(s): C18.9 - MALIGNANT NEOPLASM OF COLON, UNSPECIFIED; C78.7 - SECONDARY MALIG NEOPLASM OF LIVER AND INTRAHEPATIC BILE DUCT SNOMED Code(s): 00980465 (6) Pancytopenia due to chemotherapy Narrative/Plan: white count improved Current Visit: Yes Status: Acute Priority: Medium Code(s): D61.810 - ANTINEOPLASTIC CHEMOTHERAPY INDUCED PANCYTOPENIA SNOMED Code(s): 5925257
[2017-09-17] MEDS: DEXTROSE 5%-0.9% NACL 1,000 ML IV SCH (11:14)
--- NOTE | 2017-09-17 23:46 | PN ---
PROGRESS NOTE DATE OF SERVICE: 09/17/2017 REASON FOR FOLLOWUP: Febrile neutropenia. INTERVAL HISTORY: The patient is afebrile. He has been breathing comfortably. Denies having any chest pain, shortness of breath, cough. No abdominal pain. No nausea, vomiting or any diarrhea. EXAMINATION: Blood pressure 113/74, pulse of 98, temperature 96.7. He is 98% on room air. General description is a middle-aged male lying in bed in no distress. RESPIRATORY SYSTEM: Unlabored breathing. Clear to auscultation anteriorly. HEART: S1, S2. Regular rate and rhythm. ABDOMEN: Soft. No tenderness. EXTREMITIES: No edema of the feet. LABS: Hemoglobin 9.1, white count of 16,000. DIAGNOSTIC IMPRESSION AND PLAN: Patient with febrile neutropenia in a patient who does have a metastatic colon cancer with metastases to the liver with cholestatic picture. Stool for all cultures has been negative and his white count has recovered. Will go ahead and discontinue the Cefepime, give a short course of oral Augmentin. Continue with supportive care. MMODL / IJN: [id number] /
[2017-09-18] MEDS: DEXTROSE 5%-0.9% NACL 1,000 ML IV SCH ×3 (06:10→21:38)
[2017-09-18] MEDS ORDERED: AMOXIC-POT CLAV 875-125MG 1 EACH TAB PO SCH (09:00)
[2017-09-18] MEDS: FLUCONAZOLE 100 MG TAB PO SCH (09:04)
[2017-09-18] MEDS: NYSTATIN 100,000 UNIT/ML SUSP 500,000 UNIT/5 ML CUP PO SCH ×4 (09:05→21:35)
[2017-09-18] MEDS: PANTOPRAZOLE 40 MG TABLET PO SCH (09:05)
--- NOTE | 2017-09-18 09:11 | P.PN ---
Subjective Progress Note Date: 09/18/17 Principal diagnosis: metastatic colon cancer patient is still feeling weak. Still some difficulty with swallowing and poor appetite.no fever, no chills Objective - Vital Signs Vital signs: Vital Signs Temp 97.9 F 09/18/17 07:00 Pulse 97 09/18/17 07:00 Resp 18 09/18/17 07:00 BP 109/77 09/18/17 07:00 Pulse Ox 99 09/17/17 23:00 Intake & Output 09/17/17 09/18/17 09/18/17 18:59 06:59 18:59 Intake Total 950 1490 Output Total 200 Balance 950 1290 Weight 63.957 kg Intake: Intake, IV Titration 750 900 Amount Cefepime 2 gm In Sodium 50 Chloride 0.9% 50 ml @ 100 mls/hr IVPB Q8H [facility] Rx#: [id number] Dextrose 5%-0.9% NaCl 1, 600 900 000 ml @ 75 mls/hr IV . [id number] [facility] Rx#:[id number] Fluconazole in NaCl,Iso- 100 Osm 200 mg In Saline 1 100ml.bag @ 100 mls/hr IVPB DAILY [facility] Rx#: [id number] Oral 200 590 Output: Urine 200 Other: Voiding Method Toilet Toilet # Voids 1 - Exam gen:alert and oriented lungs:clear to auscultation heart:s1s2 abdomen:softly distended ext:no edema - Labs CBC & Chem 7: 09/17/17 06:55 09/17/17 00:00 Labs: Abnormal Lab Results - Last 24 Hours (Table) 09/17/17 Range/Units 00:00 Potassium 3.1 L (3.5-5.1) mmol/L Chloride 115 H (98-107) mmol/L Carbon Dioxide 15 L (22-30) mmol/L Calcium 7.9 L (8.4-10.2) mg/dL Total Bilirubin 4.0 H (0.2-1.3) mg/dL AST 130 H (17-59) U/L Alkaline Phosphatase 1121 H (38-126) U/L Total Protein 4.2 L (6.3-8.2) g/dL Albumin 1.8 L (3.5-5.0) g/dL Microbiology - Last 24 Hours (Table) 09/16/17 14:40 Gram Stain - Preliminary Ascites Fluid Body Fluid Culture - Preliminary 09/12/17 14:35 Blood Culture - Preliminary Blood No Growth after 120 hours 09/12/17 13:58 Blood Culture - Preliminary Blood No Growth after 120 hours Assessment and Plan (1) Hypoglycemia Narrative/Plan: stable now Current Visit: Yes Status: Acute Code(s): E16.2 - HYPOGLYCEMIA, UNSPECIFIED SNOMED Code(s): 697364539 (2) Neutropenic fever Narrative/Plan: no further fever episodes Current Visit: Yes Status: Acute Code(s): D70.9 - NEUTROPENIA, UNSPECIFIED; R50.81 - FEVER PRESENTING WITH CONDITIONS CLASSIFIED ELSEWHERE SNOMED Code(s) : 905617641 (3) Thrush Narrative/Plan: on diflucan and nystatin Current Visit: Yes Status: Acute Code(s): B37.0 - CANDIDAL STOMATITIS SNOMED Code(s): 16618709 (4) Jaundice Current Visit: Yes Status: Acute Priority: High Code(s): R17 - UNSPECIFIED JAUNDICE SNOMED Code(s): 76565745 (5) Metastatic colon cancer to liver Narrative/Plan: plan for meeting with patient,family and oncology oncology planning on discussing hospice Current Visit: Yes Status: Acute Priority: High Code(s): C18.9 - MALIGNANT NEOPLASM OF COLON, UNSPECIFIED; C78.7 - SECONDARY MALIG NEOPLASM OF LIVER AND INTRAHEPATIC BILE DUCT SNOMED Code(s): 63843904 (6) Pancytopenia due to chemotherapy Current Visit: Yes Status: Acute Priority: Medium Code(s): D61.810 - ANTINEOPLASTIC CHEMOTHERAPY INDUCED PANCYTOPENIA SNOMED Code(s): 7853474
[2017-09-18] MEDS: POTAS-SOD-PHOS 278-164-250 MG 1 EACH PACKET PO SCH ×3 (09:31→21:35)
[2017-09-18 12:36] LABS: ALT 64 U/L (21-72); AST 130 U/L (17-59); Albumin 1.8 g/dL (3.5-5.0); Alkaline Phosphatase 1121 U/L (38-126); Anion Gap 13 mmol/L; Blood Urea Nitrogen 13 mg/dL (9-20); Calcium 7.9 mg/dL (8.4-10.2); Carbon Dioxide 15 mmol/L (22-30); Chloride 115 mmol/L (98-107); Glucose 84 mg/dL (74-99); Potassium 3.1 mmol/L (3.5-5.1); Sodium 143 mmol/L (137-145); Total Protein 4.2 g/dL (6.3-8.2)
--- NOTE | 2017-09-18 13:37 | P.PN ---
Subjective Progress Note Date: 09/18/17 Principal diagnosis: Jaundice, metastatic colon adenocarcinoma Family meeting today, , son and step- daughters at bedside. Pt denies nausea, RULA or pain. Objective - Vital Signs Vital signs: Vital Signs Temp 97.9 F 09/18/17 07:00 Pulse 99 09/18/17 09:37 Resp 18 09/18/17 09:37 BP 109/77 09/18/17 07:00 Pulse Ox 99 09/17/17 23:00 Intake & Output 09/17/17 09/18/17 09/18/17 18:59 06:59 18:59 Intake Total 950 1490 Output Total 200 Balance 950 1290 Weight 63.957 kg Intake: Intake, IV Titration 750 900 Amount Cefepime 2 gm In Sodium 50 Chloride 0.9% 50 ml @ 100 mls/hr IVPB Q8H [facility] Rx#: [id number] Dextrose 5%-0.9% NaCl 1, 600 900 000 ml @ 75 mls/hr IV . [id number] [facility] Rx#:[id number] Fluconazole in NaCl,Iso- 100 Osm 200 mg In Saline 1 100ml.bag @ 100 mls/hr IVPB DAILY [facility] Rx#: [id number] Oral 200 590 Output: Urine 200 Other: Voiding Method Toilet Toilet Toilet # Voids 1 - Exam Frail, emaciated male laying in bed, A&Ox4, NAD, respirations are shallow and unlabored - Labs CBC & Chem 7: 09/17/17 06:55 09/18/17 07:35 Labs: Abnormal Lab Results - Last 24 Hours (Table) 09/18/17 Range/Units 07:35 Potassium 3.1 L (3.5-5.1) mmol/L Chloride 115 H (98-107) mmol/L Carbon Dioxide 15 L (22-30) mmol/L Calcium 7.9 L (8.4-10.2) mg/dL Total Bilirubin 4.0 H (0.2-1.3) mg/dL AST 130 H (17-59) U/L Alkaline Phosphatase 1121 H (38-126) U/L Total Protein 4.2 L (6.3-8.2) g/dL Albumin 1.8 L (3.5-5.0) g/dL Microbiology - Last 24 Hours (Table) 09/16/17 14:40 Gram Stain - Preliminary Ascites Fluid Body Fluid Culture - Preliminary 09/12/17 14:35 Blood Culture - Preliminary Blood No Growth after 120 hours 09/12/17 13:58 Blood Culture - Preliminary Blood No Growth after 120 hours Assessment and Plan (1) Pancytopenia due to chemotherapy Current Visit: Yes Status: Acute Priority: Medium Code(s): D61.810 - ANTINEOPLASTIC CHEMOTHERAPY INDUCED PANCYTOPENIA SNOMED Code(s): 1561023 (2) Metastatic colon cancer to liver Current Visit: Yes Status: Acute Priority: High Code(s): C18.9 - MALIGNANT NEOPLASM OF COLON, UNSPECIFIED; C78.7 - SECONDARY MALIG NEOPLASM OF LIVER AND INTRAHEPATIC BILE DUCT SNOMED Code(s): 40739579 (3) Jaundice Current Visit: Yes Status: Acute Priority: High Code(s): R17 - UNSPECIFIED JAUNDICE SNOMED Code(s): 81052912 Plan: We discussed that the interventions attempted to treat jaundice were not successful. There are no other options for treatment of the jaundice. We discussed the amount of metastatic disease in the liver is overwhelming and without moderate degree of liver function pt is not a candidate for chemotherapy as the chemo would cause more harm then good. We spoke about how rapidly the disease progressed in the liver and, it is not likely that treatment would have any notable impact on the cancer. All of the pt and family questions about the diagnosis were answered at this point. We then discussed that the options for care from here are limited and would be for the sole purpose of quality of life vs quantity. We spoke about home hospice and pt and family are interested. They would like just a little time to talk to each other and figure out some details. Case was discussed with RN and Case Manger, they are available when family is ready to make plans. Anticipate request to go home in the next 24 hours but assured family pt will only be discharged once hospice has home set up to receive pt. It is understood the prognosis is terminal, life expectancy measured in days/ week We are available for any questions or concerns.
--- NOTE | 2017-09-18 13:47 | PN ---
PROGRESS NOTE DATE OF SERVICE: 09/18/2017 REASON FOR FOLLOWUP: Febrile neutropenia secondary to his metastatic colon cancer. INTERVAL HISTORY: The patient is afebrile. He is currently breathing comfortably. Denies having any chest pain, shortness of breath. No nausea, vomiting, diarrhea. Apparently has been seen by Oncology with a possible plan for hospice. PHYSICAL EXAMINATION: Blood pressure 109/77 with a pulse of 97, temperature 97.9. He is 99% room air. General description is a middle-aged male, lying in bed in no distress. RESPIRATORY SYSTEM: Unlabored breathing, clear to auscultation anteriorly. HEART: S1, S2. Regular rate and rhythm. ABDOMEN: Soft, no tenderness. LABS: Hemoglobin 9.1, white count of 16, BUN of 13, creatinine 0.75. DIAGNOSTIC IMPRESSION AND PLAN: Patient with febrile neutropenia secondary to metastatic colon cancer. So far all his cultures have been negative with plan for possible hospice has been appropriate for him at this point, antibiotic can be safely discontinued. ID will sign off. MMODL / IJN: [id number] /
[2017-09-18] MEDS: AMOXIC-POT CLAV 400-57MG/5ML 50 ML BOTTLE PO SCH (21:40)
[2017-09-19 07:18] LABS: ALT 73 U/L (21-72); AST 156 U/L (17-59); Albumin 1.9 g/dL (3.5-5.0); Alkaline Phosphatase 1108 U/L (38-126); Anion Gap 13 mmol/L; Blood Urea Nitrogen 15 mg/dL (9-20); Carbon Dioxide 15 mmol/L (22-30); Chloride 116 mmol/L (98-107); Glucose 83 mg/dL (74-99); Potassium 3.6 mmol/L (3.5-5.1); Sodium 144 mmol/L (137-145); Total Bilirubin 4.1 mg/dL (0.2-1.3); Total Protein 4.2 g/dL (6.3-8.2)
[2017-09-19 08:23] VITALS: BP 125/78; PULSE 85; RESP 16; TEMP 97.5
[2017-09-19] MEDS: DEXTROSE 5%-0.9% NACL 1,000 ML IV SCH (09:32)
[2017-09-19] MEDS: POTAS-SOD-PHOS 278-164-250 MG 1 EACH PACKET PO SCH (09:34)
[2017-09-19] MEDS: AMOXIC-POT CLAV 400-57MG/5ML 50 ML BOTTLE PO SCH (09:43)
[2017-09-19] MEDS: NYSTATIN 100,000 UNIT/ML SUSP 500,000 UNIT/5 ML CUP PO SCH ×2 (09:45→13:51)
[2017-09-19] MEDS: PANTOPRAZOLE 40 MG TABLET PO SCH (09:46)
[2017-09-19] MEDS: FLUCONAZOLE 100 MG TAB PO SCH (09:46)
--- NOTE | 2017-09-19 16:21 | P.DS ---
Providers Date of admission: 09/10/17 15:19 Expected date of discharge: 09/19/17 Attending physician: Jama Valderrama MD Consults: 09/10/17 15:19 Consult Physician Stat Consulting Provider: Tessy Recinos Consult Reason/Comments: Colon cancer metastatic disease to liver Do you want consulting provider notified?: Yes Consult Physician Stat Consulting Provider: Corinna Fernandez Consult Reason/Comments: Jaundiced, colon cancer with metastatic disease to the liver Do you want consulting provider notified?: Yes 09/12/17 09:37 Consult Physician Routine Consulting Provider: Eulalia Ramirez Consult Reason/Comments: Fever Do you want consulting provider notified?: Yes Primary care physician: Toña Chinchilla MD Hospital Course: 62-year-old male the past medical history of colon cancer with metastasis to liver follows with Dr. Kentrell yadav who was on chemotherapy, presented to the ER with his complaining of increasing lower extremity weakness and fatigue. The patient reported poor appetite over the last 1-2 weeks. The patient noticed today in particular that his skin whites of his eyes are increasingly yellow. The patient denied any increasing abdominal distention or shortness of breath, although he did report some intermittent lower extremity swelling. The patient denied any itchiness, confusion, involuntary movements or tremors. In the ER the patient had a CT abdomen and pelvis that showed no significant change from previous, there was noted hepatomegaly with diffuse hepatic metastasis disease causing local mass effect, from primary colonic carcinoma and adjacent medial adenopathy in the right lower quadrant small amount of abdominal and a moderate amount of pelvic ascites seen. The patient was noted to be pancytopenic, hemoglobin of 8.7, platelets of 44,000, neutropenia and hyperbilirubinemia with a total bilirubin of 8.4. He was started on IV fluids in the ER and recommended for admission A couple of days into the admission he started spiking fevers with a peak temperature of 100.9. He was diagnosed with neutropenic fever and was started on IV antibiotics, broad-spectrum including cefepime. Blood cultures remained negative. Antibiotics was scaled down subsequently to Augmentin. He was seen in consultation with infectious disease. The source of the infection was most likely secondary to biliary source. Because of the progressive jaundice and hyperbilirubinemia he was seen in consultation with GI. He had an ERCP done and that did not show any biliary stenosis amenable to stent placement. The jaundice was explained by diffuse liver metastases. Patient was seen in consultation with oncology service who eventually advised that patient be transferred to hospice care only because he did not have any liver function left for him to tolerate chemotherapy. Case was discussed with care management and patient was referred to home hospice with [facility]. Case was extensively discussed with the family as well as the patient. They are all agreeable to this plan. Prescription for narcotics and benzodiazepines were provided upon discharge. Patient will continue to be treated with Diflucan, nystatin, PPI, Compazine for nausea. Time for discharge 35 minutes. Patient Condition at Discharge: Good Plan - Discharge Summary New Discharge Prescriptions: New Amoxic-Pot Clav 400-57Mg/5Ml [Augmentin 400-57 mg/5 ml Susp] 11 ml PO Q12HR # 110 bottle Fluconazole [Diflucan] 200 mg PO DAILY #30 tab MORPHINE ORAL RENETTA 2mg/mL [Morphine Oral Soln 2 MG/ML] 6 mg PO Q4HR PRN ml PRN Reason: Pain Nystatin 100,000 Unit/ml Susp [Mycostatin Oral Susp] 500,000 unit PO QID cup Pantoprazole [Protonix] 40 mg PO DAILY #30 tablet.dr Continue Nystatin 100,000 Unit/ml Susp [Mycostatin Oral Susp] 5 ml PO QID PRN #300 cup PRN Reason: THRUSH Prochlorperazine [Compazine] 10 mg PO Q6H PRN #30 tab PRN Reason: Nausea Discontinued HYDROcodone/APAP 5-325MG [[place] 5-325] 1 tab PO Q8H PRN PRN Reason: Pain Discharge Medication List Nystatin 100,000 Unit/ml Susp [Mycostatin Oral Susp] 5 ml PO QID PRN #300 cup [Rx] Amoxic-Pot Clav 400-57Mg/5Ml [Augmentin 400-57 mg/5 ml Susp] 11 ml PO Q12HR # 110 bottle 09/19/17 [Rx] Fluconazole [Diflucan] 200 mg PO DAILY #30 tab 09/19/17 [Rx] MORPHINE ORAL RENETTA 2mg/mL [Morphine Oral Soln 2 MG/ML] 6 mg PO Q4HR PRN ml 09/19 [Rx] Nystatin 100,000 Unit/ml Susp [Mycostatin Oral Susp] 500,000 unit PO QID cup [Rx] Pantoprazole [Protonix] 40 mg PO DAILY #30 tablet. 09/19/17 [Rx] Prochlorperazine [Compazine] 10 mg PO Q6H PRN #30 tab 09/19/17 [Rx] Follow up Appointment(s)/Referral(s): Toña Chinchilla MD [Primary Care Provider] - As Needed Discharge Disposition: HOME WITH HOSPICE
== END 2017-09-19 15:45 | disposition hospice, home (50) | DRG 435 ==
LOC: EC 10:03 → 5ONC 15:19
PROVIDERS: ADMIT Family Medicine; ATTEND Family Medicine
PROC: 0FJB8ZZ Inspection of Hepatobiliary Duct, Via Natural or Artificial Opening Endoscopic (ICD-10-PCS; 2017-09-15)
PROC: 0W9G3ZZ Drainage of Peritoneal Cavity, Percutaneous Approach (ICD-10-PCS; principal; 2017-09-16)
DX: C78.7 Secondary malignant neoplasm of liver and intrahepatic bile duct (principal); D61.810 Antineoplastic chemotherapy induced pancytopenia; J90 Pleural effusion, not elsewhere classified; B37.0 Candidal stomatitis; R18.8 Other ascites; K80.21 Calculus of gallbladder without cholecystitis with obstruction; E83.42 Hypomagnesemia; C18.9 Malignant neoplasm of colon, unspecified; E16.2 Hypoglycemia, unspecified; E86.0 Dehydration; E87.6 Hypokalemia; G89.29 Other chronic pain; K22.70 Barrett's esophagus without dysplasia; K44.9 Diaphragmatic hernia without obstruction or gangrene; R62.7 Adult failure to thrive; T45.1X5A Adverse effect of antineoplastic and immunosuppressive drugs, initial encounter; Z51.5 Encounter for palliative care; Z79.891 Long term (current) use of opiate analgesic; Z86.010 Personal history of colon polyps; Z79.899 Other long term (current) drug therapy; R50.81 Fever presenting with conditions classified elsewhere
CPT/HCPCS: 36415; 43260; 49083; 71046; 74177; 74328; 80048; 80053; 80076; 81001; 82550; 82553; 83605; 83735; 84100; 84157; 84484; 85025; 85610; 85730; 87040; 87070; 87205; 88108; 88305; 88341; 88342; 89050; 93005; 94760; 96360; 96361; 99285